=== PATIENT | female | born 1950 | race Caucasian/White ===

== ENCOUNTER 2019-07-04 11:56 | Emergency (ER) | payer MEDICARE, OTHER ==
[~2019-07-04] VITALS: Ht 160 cm; Wt 82.0 kg
[2019-07-04 13:29] LABS: BASO # 0.1 x10^3/uL (0.0-0.2); BASO % 1 % (0-3); EOS % 0 % (0-3); HEMATOCRIT 36.3 % (36.0-47.0); HEMOGLOBIN 11.3 g/dL (12.0-15.5); LYMPH # 1.5 x10^3/uL (1.0-4.8); LYMPH % 10 % (24-48); MEAN CORPUSCULAR HEMOGLOBIN 24 pg (25-35); MEAN CORPUSCULAR HGB CONC 31 g/dL (31-37); MEAN CORPUSCULAR VOLUME 76 fL (79-100); MONO # 1.1 x10^3/uL (0.0-1.1); MONO % 8 % (0-9); NEUT # 11.8 x10^3uL (1.8-7.7); NEUT % 81 % (31-73); PLATELET COUNT 306 x10^3/uL (140-400); RED CELL DISTRIBUTION WIDTH 16.8 % (11.5-14.5); WHITE BLOOD COUNT 14.6 x10^3/uL (4.0-11.0)
[2019-07-04] MEDS: ONDANSETRON PF 4 MG/2 ML VIAL. IVP ONE ×2 (13:30→16:35)
[2019-07-04] MEDS: IV NORMAL SALINE 1,000ML 1,000 ML IV ONE (13:31)
[2019-07-04 13:35] LABS: CALCIUM 8.9 mg/dL (8.5-10.1); CREATININE 1.7 mg/dL (0.6-1.0); GFR 29.8; POTASSIUM 4.1 mmol/L (3.5-5.1)
[2019-07-04 13:41] LABS: ALBUMIN 3.1 g/dL (3.4-5.0); ALBUMIN/GLOBULIN RATIO 0.8 (1.0-1.7); MAGNESIUM 2.1 mg/dL (1.8-2.4); TOTAL BILIRUBIN 0.3 mg/dL (0.2-1.0); TOTAL PROTEIN 6.9 g/dL (6.4-8.2)
--- NOTE | 2019-07-04 14:11 | RAD ---
CT HEAD WO CONTRAST Clinical indications: Headache for 2 weeks. COMPARISON: September 18, 2014. Technique: Noncontrast axial cross sectional scanning of the head was performed. PQRS compliance Statement One or more of the following individualized dose reduction techniques were utilized for this study: 1. Automated exposure control 2. Adjustment of the mA and/or kV according to patient size 3. Use of iterative reconstruction technique Findings: No acute intracranial hemorrhage or midline shift or mass-effect or hydrocephalus or extra-axial fluid collection is seen. There is a moderate-sized area of encephalomalacia of the right cerebellum. There is a large area of encephalomalacia of the left parietal lobe including jin matter and periventricular white matter which extends anteriorly and posteriorly. There is a moderate-sized wedge-shaped area of encephalomalacia involving the lateral aspect of the left occipital lobe. Findings are consistent with old infarcts. In addition, there is a black central hypodensity of the gabe. This may be due to artifact or could be due to old small vessel ischemia. All of these findings are new since the previous study however. No skull fracture or pneumocephalus is seen. No opacification of the mastoid sinuses or the middle ear cavities or the paranasal sinuses is seen. The maxillary sinuses are not completely seen in this study. IMPRESSION: No acute intracranial hemorrhage is seen. 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 Electronically signed by: Haeth Zacarias MD (07/04/2019 2:08 PM) [facility] – [place]
--- NOTE | 2019-07-04 15:38 | RAD ---
CT scan of the abdomen and pelvis without contrast 07/04/2019 CLINICAL HISTORY: Abdominal pain. Difficulty urinating. TECHNIQUE: Unenhanced contiguous, 3 mm axial sections were obtained through the abdomen and pelvis. One or more of the following individualized dose reduction techniques were utilized for this study: 1. Automated exposure control. 2. Adjustment of the mA and/or kV according to patient size. 3. Use of iterative reconstruction technique. FINDINGS: Images through the lung bases demonstrate minimal dependent subsegmental atelectasis bilaterally. The liver, spleen, and pancreas are within normal limits. Fat-containing mass lesions are seen involving both adrenal glands, left greater than right which measure 2 to 3 cm in size. They are consistent with adrenal myelolipomas. Multiple nonobstructing calculi are seen involving both kidneys. These measure 1 mm to 1.8 cm in size. Rounded low-attenuation lesions are seen involving both kidneys consistent most likely with cysts. These measure 3 mm to 3.6 cm in size. No further imaging workup is recommended. Moderate dilatation of the right intrarenal collecting system is seen. The right ureter is dilated in its proximal and midportion. A 1 cm distal right ureteral calculus is seen in the distal right ureter which is causing moderate obstruction of the right collecting system. This is approximately 5 to 6 cm superior to the expected location of the right UVJ. There is no evidence of obstruction of the left collecting system. Atherosclerotic calcification of the abdominal aorta and its branches is noted. Air and stool are seen throughout the colon. There is no evidence of bowel obstruction. Diverticula are seen involving the descending and sigmoid colon. Images through the pelvis demonstrate the urinary bladder to be slightly contracted. Calcifications are seen within the pelvis consistent with phleboliths. No free fluid is seen. The patient appears to be post hysterectomy. No adnexal mass is noted. Very mild S-shaped curvature of the thoracolumbar spine is seen. Degenerative changes are seen involving the lower thoracic and mid and lower lumbar spine along with both hips. IMPRESSION: 1 cm distal right ureteral calculus is seen which is causing moderate obstruction of the right collecting system. Electronically signed by: Ottoniel Spring MD (07/04/2019 3:35 PM) [id number]
[2019-07-04] MEDS ORDERED: PIPERACILLIN/TAZOBACTAM 3.375 GM VIAL IV ONE (15:49)
[2019-07-04] MEDS ORDERED: IV NORMAL SALINE 50ML 50 ML ONE (15:49)
--- NOTE | 2019-07-04 15:56 | PHYS DOC ---
Past History Past Medical History: A-Fib, CHF, CVA, DVT, Hypertension, Kidney Stones Past Surgical History: Cholecystectomy, Hysterectomy, Tonsillectomy Alcohol Use: None Adult General Chief Complaint Chief Complaint: HEADACHE HPI HPI Patient is a 69-year-old female who presented to ER today for evaluation of 2- day history of abdominal pain, nausea and vomiting, not able to urinate. Patient has history of kidney stone in the past. Patient denies any fever. She was not able to keep anything down for the last 2-day. Patient also had a history of CVA in the past, affecting the right side. Patient has been experiencing migraine headache ever since. For the last 2-week patient has been having her typical migraine headache. Patient denies any fever, no head injury. Patient denies any chest pain, no trouble breathing. Review of Systems Review of Systems Constitutional: Denies fever or chills [] Eyes: Denies change in visual acuity, redness, or eye pain [] HENT: Denies nasal congestion or sore throat [] Respiratory: Denies cough or shortness of breath [] Cardiovascular: No additional information not addressed in HPI [] GI: Positive abdominal pain, nausea, vomiting, NO bloody stools or diarrhea [] : Denies dysuria or hematuria [] Musculoskeletal: Denies back pain or joint pain [] Integument: Denies rash or skin lesions [] Neurologic: POSITIVE FOR headache,NO focal weakness or sensory changes [] Endocrine: Denies polyuria or polydipsia [] All other systems were reviewed and found to be within normal limits, except as documented in this note. Current Medications Current Medications Current Medications Medications (Trade) Dose Ordered Sig/Luiza Start Time Stop Time Status Last Admin Dose Admin Ondansetron HCl (Zofran) 4 mg 1X ONCE 07/04/19 13:00 07/04/19 13:20 DC 07/04/19 13:30 4 MG Piperacillin Sod/ Tazobactam Sod (Zosyn) 3.375 gm STK-MED ONCE 07/04/19 15:49 07/04/19 15:49 DC Piperacillin Sod/ Tazobactam Sod 3.375 gm/Sodium Chloride 50 ml @ 100 mls/hr 1X ONCE 07/04/19 15:15 07/04/19 15:44 DC Sodium Chloride 50 ml @ As Directed STK-MED ONCE 07/04/19 15:49 07/04/19 15:49 DC Allergies Allergies Allergies Coded Allergies Type Severity Reaction Last Updated Verified Sulfa (Sulfonamide Antibiotics) Allergy Unknown 07/04/19 Yes levofloxacin Allergy Unknown 07/04/19 Yes morphine Allergy Unknown 07/04/19 Yes Physical Exam Physical Exam Constitutional: Well developed, well nourished, no acute distress, non-toxic appearance. [] HENT: Normocephalic, atraumatic, bilateral external ears normal, oropharynx moist, no oral exudates, nose normal. [] Eyes: PERRLA, EOMI, conjunctiva normal, no discharge. [] Neck: Normal range of motion, no tenderness, supple, no stridor. [] Cardiovascular:Heart rate regular rhythm, no murmur [] Lungs & Thorax: Bilateral breath sounds clear to auscultation [] Abdomen: Bowel sounds normal, soft, There is tenderness to palpation at RLQ and suprapubic area, no masses, no pulsatile masses. [] Skin: Warm, dry, no erythema, no rash. [] Back: No tenderness, no CVA tenderness. [] Extremities: No tenderness, no cyanosis, no clubbing, ROM intact, no edema. [] Neurologic: Alert and oriented X 3, right upper extremity weakness due to previous stroke. Psychologic: Affect normal, judgement normal, mood normal. [] Current Patient Data Vital Signs Vital Signs Date Time Temp Pulse Resp B/P (MAP) Pulse Ox O2 Delivery O2 Flow Rate FiO2 07/04/19 12:24 97.5 101 20 159/94 (115) 92 Room Air Lab Results Laboratory Tests Test 07/04/19 13:10 White Blood Count 14.6 x10^3/uL (4.0-11.0) H Red Blood Count 4.80 x10^6/uL (3.50-5.40) Hemoglobin 11.3 g/dL (12.0-15.5) L Hematocrit 36.3 % (36.0-47.0) Mean Corpuscular Volume 76 fL (79-100) L Mean Corpuscular Hemoglobin 24 pg (25-35) L Mean Corpuscular Hemoglobin Concent 31 g/dL (31-37) Red Cell Distribution Width 16.8 % (11.5-14.5) H Platelet Count 306 x10^3/uL (140-400) Neutrophils (%) (Auto) 81 % (31-73) H Lymphocytes (%) (Auto) 10 % (24-48) L Monocytes (%) (Auto) 8 % (0-9) Eosinophils (%) (Auto) 0 % (0-3) Basophils (%) (Auto) 1 % (0-3) Neutrophils # (Auto) 11.8 x10^3uL (1.8-7.7) H Lymphocytes # (Auto) 1.5 x10^3/uL (1.0-4.8) Monocytes # (Auto) 1.1 x10^3/uL (0.0-1.1) Eosinophils # (Auto) 0.0 x10^3/uL (0.0-0.7) Basophils # (Auto) 0.1 x10^3/uL (0.0-0.2) Sodium Level 141 mmol/L (136-145) Potassium Level 4.1 mmol/L (3.5-5.1) Chloride Level 105 mmol/L (98-107) Carbon Dioxide Level 24 mmol/L (21-32) Anion Gap 12 (6-14) Blood Urea Nitrogen 29 mg/dL (7-20) H Creatinine 1.7 mg/dL (0.6-1.0) H Estimated GFR (Cockcroft-Gault) 29.8 BUN/Creatinine Ratio 17 (6-20) Glucose Level 114 mg/dL (70-99) H Calcium Level 8.9 mg/dL (8.5-10.1) Magnesium Level 2.1 mg/dL (1.8-2.4) Total Bilirubin 0.3 mg/dL (0.2-1.0) Aspartate Amino Transferase (AST) 17 U/L (15-37) Alanine Aminotransferase (ALT) 13 U/L (14-59) L Alkaline Phosphatase 105 U/L (46-116) Total Protein 6.9 g/dL (6.4-8.2) Albumin 3.1 g/dL (3.4-5.0) L Albumin/Globulin Ratio 0.8 (1.0-1.7) L Lipase 104 U/L (73-393) EKG EKG [] Radiology/Procedures Radiology/Procedures [][address] [id number] IMAGING REPORT Signed PATIENT: SHERRI BERGER ACCOUNT: [id number] : 1950 LOCATION: ER AGE: 69 SEX: F EXAM STATUS: REG ER ORD. PHYSICIAN: SUPRIYA SALGADO DO REASON: ABDOMINAL PAIN, NOT ABLE TO URINATE PROCEDURE: CT ABDOMEN PELVIS WO CONTRAST CT scan of the abdomen and pelvis without contrast 07/04/2019 CLINICAL HISTORY: Abdominal pain. Difficulty urinating. TECHNIQUE: Unenhanced contiguous, 3 mm axial sections were obtained through the abdomen and pelvis. One or more of the following individualized dose reduction techniques were utilized for this study: 1. Automated exposure control. 2. Adjustment of the mA and/or kV according to patient size. 3. Use of iterative reconstruction technique. FINDINGS: Images through the lung bases demonstrate minimal dependent subsegmental atelectasis bilaterally. The liver, spleen, and pancreas are within normal limits. Fat-containing mass lesions are seen involving both adrenal glands, left greater than right which measure 2 to 3 cm in size. They are consistent with adrenal myelolipomas. Multiple nonobstructing calculi are seen involving both kidneys. These measure 1 mm to 1.8 cm in size. Rounded low-attenuation lesions are seen involving both kidneys consistent most likely with cysts. These measure 3 mm to 3.6 cm in size. No further imaging workup is recommended. Moderate dilatation of the right intrarenal collecting system is seen. The right ureter is dilated in its proximal and midportion. A 1 cm distal right ureteral calculus is seen in the distal right ureter which is causing moderate obstruction of the right collecting system. This is approximately 5 to 6 cm superior to the expected location of the right UVJ. There is no evidence of obstruction of the left collecting system. Atherosclerotic calcification of the abdominal aorta and its branches is noted. Air and stool are seen throughout the colon. There is no evidence of bowel obstruction. Diverticula are seen involving the descending and sigmoid colon. Images through the pelvis demonstrate the urinary bladder to be slightly contracted. Calcifications are seen within the pelvis consistent with phleboliths. No free fluid is seen. The patient appears to be post hysterectomy. No adnexal mass is noted. Very mild S-shaped curvature of the thoracolumbar spine is seen. Degenerative changes are seen involving the lower thoracic and mid and lower lumbar spine along with both hips. IMPRESSION: 1 cm distal right ureteral calculus is seen which is causing moderate obstruction of the right collecting system. Electronically signed by: Ottoniel Spring MD (07/04/2019 3:35 PM) [id number] DICTATED AND SIGNED BY: OTTONIEL SPRING MD DATE: 07/04/19 1535 CC: SUPRIYA SALGADO DO; ALIVIA BOOKER MD ~ [address] [id number] IMAGING REPORT Signed PATIENT: SHERRI BERGER ACCOUNT: [id number] : 1950 LOCATION: ER AGE: 69 SEX: F EXAM STATUS: REG ER ORD. PHYSICIAN: SUPRIYA SALGADO DO REASON: headache for two weeks PROCEDURE: CT HEAD WO CONTRAST CT HEAD WO CONTRAST Clinical indications: Headache for 2 weeks. COMPARISON: September 18, 2014. Technique: Noncontrast axial cross sectional scanning of the head was performed. PQRS compliance Statement One or more of the following individualized dose reduction techniques were utilized for this study: 1. Automated exposure control 2. Adjustment of the mA and/or kV according to patient size 3. Use of iterative reconstruction technique Findings: No acute intracranial hemorrhage or midline shift or mass-effect or hydrocephalus or extra-axial fluid collection is seen. There is a moderate-sized area of encephalomalacia of the right cerebellum. There is a large area of encephalomalacia of the left parietal lobe including jin matter and periventricular white matter which extends anteriorly and posteriorly. There is a moderate-sized wedge-shaped area of encephalomalacia involving the lateral aspect of the left occipital lobe. Findings are consistent with old infarcts. In addition, there is a black central hypodensity of the gabe. This may be due to artifact or could be due to old small vessel ischemia. All of these findings are new since the previous study however. No skull fracture or pneumocephalus is seen. No opacification of the mastoid sinuses or the middle ear cavities or the paranasal sinuses is seen. The maxillary sinuses are not completely seen in this study. IMPRESSION: No acute intracranial hemorrhage is seen. 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 Electronically signed by: Heath Zacarias MD (07/04/2019 2:08 PM) [facility] [place] DICTATED AND SIGNED BY: HEATH ZACARIAS MD DATE: 07/04/19 1408 CC: SUPRIYA SALGADO DO; ALIVIA BOOKER MD ~ Course & Med Decision Making Course & Med Decision Making Pertinent Labs and Imaging studies reviewed. (See chart for details) Patient is a 69-year-old female who was evaluated in the ER today due to headache and abdominal pain, associated with nausea and vomiting. Work-up in the ER includes CT scan of her head and lab work, CT scan of her abdomen pelvic show she had obstructive right-sided ureteral stone, there is no urology service at this hospital, patient need to be admitted to the hospital therefore we need to transfer her to another hospital for urology care. Patient request to go to [facility]. Dr. Seven Richard, hospitalist at [facility] accepted patient for transfer there. Dragon Disclaimer Dragon Disclaimer This electronic medical record was generated, in whole or in part, using a voice recognition dictation system. Departure Departure: Impression: Primary Impression: Hydronephrosis with renal calculous obstruction Disposition: XFER [facility] HOSP (transferred to [facility], ACCEPTED BY DR. SEVEN MANN) Condition: STABLE Referrals: ALIVIA BOOKER MD (PCP) SUPRIYA SALGADO DO Jul 04, 2019 15:56
[2019-07-04] MEDS: PIPERACILLIN/TAZOBACTAM 3.375 GM in IV NORMAL SALINE 50ML 50 ML IV ONE (16:00)
[2019-07-04 16:01] LABS: BACTERIA,URINE 0 /HPF (0-FEW); BILIRUBIN,URINE NEG (NEG); CLARITY,URINE HAZY; COLOR,URINE YELLOW; GLUCOSE,URINE NEG (NEG); NITRITE,URINE NEG (NEG); RBC,URINE OCC /HPF (0-2); SQUAMOUS EPITHELIAL CELL,UR OCC /LPF; UROBILINOGEN,URINE 0.2 mg/dL (0.2 mg/dL)
[2019-07-04 17:31] VITALS: BP 144/79
== END 2019-07-04 17:45 | disposition short-term general hospital (02) ==
LOC: ER 11:56
DX: N13.2 Hydronephrosis with renal and ureteral calculous obstruction (principal); R11.2 Nausea with vomiting, unspecified; G43.909 Migraine, unspecified, not intractable, without status migrainosus; I48.91 Unspecified atrial fibrillation; I11.0 Hypertensive heart disease with heart failure; I50.9 Heart failure, unspecified; Z86.73 Personal history of transient ischemic attack (TIA), and cerebral infarction without residual deficits; Z86.718 Personal history of other venous thrombosis and embolism; Z87.442 Personal history of urinary calculi; Z90.49 Acquired absence of other specified parts of digestive tract; Z90.710 Acquired absence of both cervix and uterus; Z88.2 Allergy status to sulfonamides; Z88.1 Allergy status to other antibiotic agents; Z88.5 Allergy status to narcotic agent
CPT/HCPCS: 36415; 70450; 74176; 80053; 81001; 83690; 83735; 85025; 96361; 96365; 96375; 96376; 99285; J2405; J2543; J3010; J7030

== ENCOUNTER 2019-09-25 18:38 | Emergency (ER) | payer OTHER ==
[~2019-09-25] VITALS: Ht 312.4 cm; Wt 82.0 kg
[2019-09-25] MEDS ORDERED: ONDANSETRON PF 4 MG/2 ML VIAL. IVP ONE (19:00)
[2019-09-25 19:20] LABS: BASO % 1 % (0-3); EOS # 0.2 x10^3/uL (0.0-0.7); EOS % 2 % (0-3); HEMATOCRIT 24.5 % (36.0-47.0); HEMOGLOBIN 7.4 g/dL (12.0-15.5); LYMPH # 1.8 x10^3/uL (1.0-4.8); LYMPH % 27 % (24-48); MEAN CORPUSCULAR HEMOGLOBIN 21 pg (25-35); MEAN CORPUSCULAR HGB CONC 30 g/dL (31-37); MEAN CORPUSCULAR VOLUME 70 fL (79-100); MONO # 0.6 x10^3/uL (0.0-1.1); MONO % 9 % (0-9); NEUT # 4.2 x10^3uL (1.8-7.7); NEUT % 62 % (31-73); PLATELET COUNT 281 x10^3/uL (140-400); RED CELL DISTRIBUTION WIDTH 17.7 % (11.5-14.5); WHITE BLOOD COUNT 6.8 x10^3/uL (4.0-11.0)
[2019-09-25 19:30] LABS: CALCIUM 8.7 mg/dL (8.5-10.1); CREATININE 1.1 mg/dL (0.6-1.0); GFR 49.2
[2019-09-25 19:36] LABS: DIRECT BILIRUBIN 0.1 mg/dL (0.0-0.2); TOTAL BILIRUBIN 0.1 mg/dL (0.2-1.0); TOTAL PROTEIN 6.7 g/dL (6.4-8.2)
[2019-09-25 19:54] LABS: ANISOCYTOSIS SLIGHT; PLT ESTIMATE ADEQUATE (ADEQUATE)
--- NOTE | 2019-09-25 19:54 | RAD ---
VENOUS LOWER EXTREMITY RIGHT 09/25/2019 6:56 PM Clinical Information: Right lower extremity pain. Comparison: None. Technique: Multiple grayscale, color Doppler, and spectral Doppler sonographic images of the lower extremity venous structures were obtained. Findings: The right common femoral, femoral, and popliteal veins exhibit normal compression, respiratory phasicity, and augmentation. No intraluminal thrombi are identified. Color Doppler flow is demonstrated in the right posterior tibial veins. There is a simple fluid collection within the medial popliteal fossa measuring 3.4 x 2.4 x 0.6 cm. Greater saphenous veins are patent at the saphenofemoral junction. Impression: 1. No evidence of deep venous thrombosis. 2. Simple fluid collection in the medial popliteal fossa measures 3.4 x 2.4 x 0.6 cm, possibly a popliteal cyst. Electronically signed by: Aicha Akins MD (09/25/2019 7:51 PM) [facility]
--- NOTE | 2019-09-25 20:08 | PHYS DOC ---
Past History Past Medical History: A-Fib, CHF, CVA, DVT, Hypertension, Kidney Stones Past Surgical History: Cholecystectomy, Hysterectomy, Tonsillectomy Alcohol Use: None General Adult EDM: Chief Complaint: LOWER EXT PAIN HPI: HPI: Patient is a 69-year-old female who presents with complaint of right leg pain. 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 Pain has just gotten a whole lot worse over the last couple of days. Patient has been taking hydrocodone for the pain without relief. Patient denies any chest pain or shortness of breath. She rates the pain in her leg at an 8 out of 10. Patient also has noted increase in swelling to the leg. [] Review of Systems: Review of Systems: Constitutional: Denies fever or chills Respiratory: Denies cough or shortness of breath Cardiovascular: Denies chest pain or edema Musculoskeletal: Complains of right leg pain Integument: Denies rash Neurologic: Denies headache, focal weakness or sensory changes A full 10 point review of systems has been reviewed and is otherwise negative. Heart Score: Risk Factors: Risk Factors: DM, Current or recent (<one month) smoker, HTN, HLP, family history of CAD, obesity. Risk Scores: Score 0 - 3: 2.5% MACE over next 6 weeks - Discharge Home Score 4 - 6: 20.3% MACE over next 6 weeks - Admit for Clinical Observation Score 7 - 10: 72.7% MACE over next 6 weeks - Early Invasive Strategies Current Medications: Current Meds: Current Medications Medications (Trade) Dose Ordered Sig/[facility] Start Time Stop Time Status Last Admin Dose Admin Fentanyl Citrate (Fentanyl 2ml Vial) 50 mcg 1X ONCE 09/25/19 19:00 09/25/19 19:22 DC 09/25/19 19:00 50 MCG Ondansetron HCl (Zofran) 4 mg 1X ONCE 09/25/19 19:00 09/25/19 19:01 DC 09/25/19 19:00 4 MG Allergies: Allergies: Allergies Coded Allergies Type Severity Reaction Last Updated Verified Sulfa (Sulfonamide Antibiotics) Allergy Unknown 07/04/19 Yes levofloxacin Allergy Unknown 07/04/19 Yes morphine Allergy Unknown 07/04/19 Yes Physical Exam: PE: Constitutional: Well developed, well nourished, no acute distress, non-toxic appearance. [] HENT: Normocephalic, atraumatic, bilateral external ears normal, oropharynx moist, no oral exudates, nose normal. [] Eyes: PERRLA, EOMI, conjunctiva normal, no discharge. [] Neck: Normal range of motion, no tenderness, supple, no stridor. [] Cardiovascular: Regular rate and rhythm [] Lungs & Thorax: Bilateral breath sounds clear to auscultation [] Abdomen: Bowel sounds normal, soft, no tenderness. [] Skin: Warm, dry, no erythema, no rash. [] Extremities: No tenderness, no cyanosis, no clubbing, ROM intact, with right lower leg edema. [] Neurologic: Awake and alert with no acute focal deficits noted. [] Current Patient Data: Labs: Laboratory Tests Test 09/25/19 19:07 White Blood Count 6.8 x10^3/uL (4.0-11.0) Red Blood Count 3.50 x10^6/uL (3.50-5.40) Hemoglobin 7.4 g/dL (12.0-15.5) L Hematocrit 24.5 % (36.0-47.0) L Mean Corpuscular Volume 70 fL (79-100) L Mean Corpuscular Hemoglobin 21 pg (25-35) L Mean Corpuscular Hemoglobin Concent 30 g/dL (31-37) L Red Cell Distribution Width 17.7 % (11.5-14.5) H Platelet Count 281 x10^3/uL (140-400) Neutrophils (%) (Auto) 62 % (31-73) Lymphocytes (%) (Auto) 27 % (24-48) Monocytes (%) (Auto) 9 % (0-9) Eosinophils (%) (Auto) 2 % (0-3) Basophils (%) (Auto) 1 % (0-3) Neutrophils # (Auto) 4.2 x10^3uL (1.8-7.7) Lymphocytes # (Auto) 1.8 x10^3/uL (1.0-4.8) Monocytes # (Auto) 0.6 x10^3/uL (0.0-1.1) Eosinophils # (Auto) 0.2 x10^3/uL (0.0-0.7) Basophils # (Auto) 0.0 x10^3/uL (0.0-0.2) Platelet Estimate Adequate (ADEQUATE) Anisocytosis Slight D-Dimer (Joselin) 1.16 mg/L (0.00-0.50) H Sodium Level 144 mmol/L (136-145) Potassium Level 4.0 mmol/L (3.5-5.1) Chloride Level 109 mmol/L (98-107) H Carbon Dioxide Level 26 mmol/L (21-32) Anion Gap 9 (6-14) Blood Urea Nitrogen 24 mg/dL (7-20) H Creatinine 1.1 mg/dL (0.6-1.0) H Estimated GFR (Cockcroft-Gault) 49.2 Glucose Level 98 mg/dL (70-99) Calcium Level 8.7 mg/dL (8.5-10.1) Total Bilirubin 0.1 mg/dL (0.2-1.0) L Direct Bilirubin 0.1 mg/dL (0.0-0.2) Aspartate Amino Transferase (AST) 14 U/L (15-37) L Alanine Aminotransferase (ALT) 15 U/L (14-59) Alkaline Phosphatase 118 U/L (46-116) H Total Protein 6.7 g/dL (6.4-8.2) Albumin 3.0 g/dL (3.4-5.0) L Vital Signs: Vital Signs Date Time Temp Pulse Resp B/P (MAP) Pulse Ox O2 Delivery O2 Flow Rate FiO2 09/25/19 19:00 16 98 Room Air 09/25/19 18:53 98.2 90 161/88 (112) EKG: EKG: [] Radiology/Procedures: Radiology/Procedures: [] Impressions: PROCEDURE: VENOUS LOWER EXTREMITY RIGHT VENOUS LOWER EXTREMITY RIGHT 09/25/2019 6:56 PM Clinical Information: Right lower extremity pain. Comparison: None. Technique: Multiple grayscale, color Doppler, and spectral Doppler sonographic images of the lower extremity venous structures were obtained. Findings: The right common femoral, femoral, and popliteal veins exhibit normal compression, respiratory phasicity, and augmentation. No intraluminal thrombi are identified. Color Doppler flow is demonstrated in the right posterior tibial veins. There is a simple fluid collection within the medial popliteal fossa measuring 3.4 x 2.4 x 0.6 cm. Greater saphenous veins are patent at the saphenofemoral junction. Impression: 1. No evidence of deep venous thrombosis. 2. Simple fluid collection in the medial popliteal fossa measures 3.4 x 2.4 x 0.6 cm, possibly a popliteal cyst. Electronically signed by: Jarred Martins MD (09/25/2019 7:51 PM) [facility] DICTATED AND SIGNED BY: JARRED MARTINS MD DATE: 09/25/191950 CC: JOLENE HUERTA Jr., DO; ALIVIA BOOKER MD ~ Course & Med Decision Making: Course & Med Decision Making Pertinent Labs and Imaging studies reviewed. (See chart for details) [] Dragon Disclaimer: Dragon Disclaimer: This electronic medical record was generated, in whole or in part, using a voice recognition dictation system. Departure Departure: Impression: Primary Impression: Acute anemia Additional Impression: Neuropathy of right lower extremity Disposition: [facility] Admitting Physician: Jody Dill Condition: GOOD Referrals: ALIVIA BOOKER MD (PCP) JOLENE HUERTA Jr., DO September 25, 2019 20:08
[2019-09-25 20:33] VITALS: BP 143/83
== END 2019-09-25 21:26 | disposition short-term general hospital (02) ==
LOC: ER 18:38
DX: G57.91 Unspecified mononeuropathy of right lower limb (principal); D64.89 Other specified anemias; I48.91 Unspecified atrial fibrillation; I11.0 Hypertensive heart disease with heart failure; I50.9 Heart failure, unspecified; Z87.442 Personal history of urinary calculi; Z86.718 Personal history of other venous thrombosis and embolism; Z88.2 Allergy status to sulfonamides; Z88.1 Allergy status to other antibiotic agents; Z88.5 Allergy status to narcotic agent
CPT/HCPCS: 36415; 80048; 80076; 85025; 85379; 93971; 96374; 96375; 99285; J2405; J3010; 99284-25

== ENCOUNTER → 2019-11-15 | Outpatient (CLI) | payer OTHER ==
[2019-11-15 13:16] LABS: BASO # 0.1 x10^3/uL (0.0-0.2); BASO % 1 % (0-3); EOS # 0.2 x10^3/uL (0.0-0.7); EOS % 2 % (0-3); HEMATOCRIT 39.5 % (36.0-47.0); HEMOGLOBIN 12.5 g/dL (12.0-15.5); LYMPH # 1.5 x10^3/uL (1.0-4.8); LYMPH % 20 % (24-48); MEAN CORPUSCULAR HEMOGLOBIN 25 pg (25-35); MEAN CORPUSCULAR HGB CONC 32 g/dL (31-37); MEAN CORPUSCULAR VOLUME 80 fL (79-100); MONO # 0.5 x10^3/uL (0.0-1.1); MONO % 7 % (0-9); NEUT % 70 % (31-73); PLATELET COUNT 214 x10^3/uL (140-400); RED BLOOD COUNT 4.96 x10^6/uL (3.50-5.40); RED CELL DISTRIBUTION WIDTH 22.5 % (11.5-14.5); WHITE BLOOD COUNT 7.2 x10^3/uL (4.0-11.0)
[2019-11-15 14:03] LABS: PLT ESTIMATE ADEQUATE (ADEQUATE)
[2019-11-15 14:04] LABS: ANISOCYTOSIS SLIGHT; OVALOCYTES OCC; POLYCHROMASIA SLIGHT; TEAR DROP CELLS OCC
== END | disposition home or self-care (01) ==
LOC: LAB 12:41
PROVIDERS: ATTEND Family Medicine
DX: D64.9 Anemia, unspecified (principal)
CPT/HCPCS: 36415; 85025

== ENCOUNTER → 2019-11-22 | Outpatient (CLI) | payer OTHER ==
--- NOTE | 2019-11-22 13:14 | RAD ---
EXAM: 1. LUMBAR SPINE MINIMUM 4 VIEWS. 2. RIGHT KNEE 2 VIEWS. 3. RIGHT TIBIA/FIBULA 2 VIEWS. HISTORY: Low back and right leg pain. COMPARISON: None. FINDINGS: There is a mild lumbar levoscoliosis. There is grade 1 anterolisthesis at L4-5 from facet osteoarthritis. Vertebral body heights are maintained, and no fractures are identified. Degenerative disc disease is mild at L4-5. Osteopenia is at least moderate. Atherosclerotic calcifications are noted. Stool throughout the colon is consistent with constipation. The medial compartmental joint space at the right knee is effaced with moderate osteophytosis. Chondrocalcinosis of the menisci is noted. Alignment is maintained. There is no joint effusion. No fractures are appreciated more distally in the tibia/fibula. The joint bases and alignment of the mortise are maintained. IMPRESSION: 1. Grade 1 anterolisthesis at L4-5 and mild degenerative disc disease. 2. Moderate to severe medial compartmental osteoarthritis of the right knee. 3. Chondrocalcinosis of the menisci is usually a senescent finding. Correlate clinically to exclude deposition diseases such as CPPD. Electronically signed by: Dk Walters MD (11/22/2019 1:11 PM) [id number]
== END ==
LOC: PMG 11:21
PROVIDERS: ATTEND Physician Assistant
DX: M17.11 Unilateral primary osteoarthritis, right knee (principal); M51.36 Other intervertebral disc degeneration, lumbar region; M11.261 Other chondrocalcinosis, right knee
CPT/HCPCS: 72110; 73560; 73590

== ENCOUNTER 2020-02-03 23:12 | Emergency (ER) | payer OTHER ==
[~2020-02-03] VITALS: Ht 160 cm; Wt 96.2 kg
--- NOTE | 2020-02-03 23:48 | PHYS DOC ---
Past History Past Medical History: A-Fib, CHF, CVA, DVT, Hypertension, Kidney Stones, Stroke Past Surgical History: Cholecystectomy, Hysterectomy, Tonsillectomy Alcohol Use: None General Adult EDM: Chief Complaint: FACE PROBLEM HPI: HPI: 69-year-old female presents with bilateral jaw and anterior neck pain. The symptoms started last night as the patient was getting ready for bed. It got worse today and this evening she decided come the emergency room. She is accompanied by her daughter. Patient is most concerned because she has had 3 strokes that affected the right side of her body. She has not noticed change in voice weakness beyond baseline. She has tenderness at the bilateral TMJ. She also has tenderness of the anterior cervical lymph node region bilaterally. She admits to a sore throat. She denies fever or chills. Review of Systems: Review of Systems: Constitutional: Denies fever or chills Eyes: Denies change in visual acuity HENT: facial pain Respiratory: Denies cough or shortness of breath Cardiovascular: Denies chest pain or edema GI: Denies abdominal pain, nausea, vomiting, bloody stools or diarrhea : Denies dysuria Musculoskeletal: Denies back pain or joint pain Integument: Denies rash Neurologic: Denies headache, focal weakness or sensory changes Endocrine: Denies polyuria or polydipsia Lymphatic: Denies swollen glands Psychiatric: Denies depression or anxiety Heart Score: Risk Factors: Risk Factors: DM, Current or recent (<one month) smoker, HTN, HLP, family history of CAD, obesity. Risk Scores: Score 0 - 3: 2.5% MACE over next 6 weeks - Discharge Home Score 4 - 6: 20.3% MACE over next 6 weeks - Admit for Clinical Observation Score 7 - 10: 72.7% MACE over next 6 weeks - Early Invasive Strategies Allergies: Allergies: Allergies Coded Allergies Type Severity Reaction Last Updated Verified Sulfa (Sulfonamide Antibiotics) Allergy Unknown 07/04/19 Yes levofloxacin Allergy Unknown 07/04/19 Yes morphine Allergy Unknown 07/04/19 Yes Physical Exam: PE: Constitutional: Well developed, well nourished, no acute distress, non-toxic appearance. [] HENT: Normocephalic, atraumatic, bilateral external ears normal, bilateral tympanic membranes obscured with cerumen. Pain over the bilateral TMJ. Mild swelling of the right posterior palate. [] Eyes: PERRLA, EOMI, conjunctiva normal, no discharge. [] Neck: Normal range of motion, tenderness of the bilateral cervical anterior lymph nodes. [] Cardiovascular: Heart rate regular rhythm, no murmur [] Lungs & Thorax: Bilateral breath sounds clear to auscultation [] Abdomen: Bowel sounds normal, soft, no tenderness, no masses, no pulsatile masses. [] Skin: Warm, dry, no erythema, no rash. [] Back: No tenderness, no CVA tenderness. [] Extremities: No tenderness, no cyanosis, no clubbing, ROM intact, no edema. [] Neurologic: Alert and oriented X 3, normal motor function, normal sensory function, no focal deficits noted. [] Psychologic: Affect normal, judgement normal, mood normal. [] Current Patient Data: Vital Signs: Vital Signs Date Time Temp Pulse Resp B/P (MAP) Pulse Ox O2 Delivery O2 Flow Rate FiO2 02/03/20 23:29 98.4 88 20 186/81 (116) 95 Room Air EKG: EKG: [] Radiology/Procedures: Radiology/Procedures: [] Impressions: T head without contrast. CT neck without contrast. HISTORY: Jaw pain, weakness, history of prior stroke. Right palate swelling and neck pain. CT head findings: Comparison is made to CT head July 04, 2019. Encephalomalacia due to chronic ischemic infarcts involving the right occipital lobe and there is extensive encephalomalacia due to left MCA territory infarct of the left frontal and parietal lobes, stable. No intracranial hemorrhage, mass or hydrocephalus. Orbits, mastoids and bones are unremarkable. IMPRESSION: No acute abnormality. Chronic infarcts as described above. Stable exam. CT neck findings: Cervical disc disease with disc osteophytes and uncovertebral spurring may contribute to mild spinal canal and neural foraminal stenoses. Numerous sialoliths bilateral parotid glands. Thyromegaly with numerous thyroid nodules some of which are calcified of the left lobe. The submandibular space, sublingual space, oral cavity, nasopharynx, pediatrician active practice spaces, parapharyngeal spaces, larynx and pharynx are unremarkable. Retropharyngeal carotid arteries. No mass or adenopathy. IMPRESSION: 1. No acute process. 2. Numerous bilateral parotid gland sialoliths. No inflammatory change of the salivary glands evident. 3. Multinodular thyroid with calcifications. This could be further assessed with outpatient thyroid sonography. Exposure: One or more of the following individualized dose reduction techniques were utilized for this examination: 1. Automated exposure control 2. Adjustment of the mA and/or kV according to patient size 3. Use of iterative reconstruction technique Electronically signed by: Morena Johnson MD (02/04/2020 1:03 AM) [facility] DICTATED AND SIGNED BY: MORENA JOHNSON MD DATE: 02/04/20 010 CC: JUSTIN WILLOUGHBY DO; ESDRAS HUDSON ~ Course & Med Decision Making: Course & Med Decision Making Pertinent Labs and Imaging studies reviewed. (See chart for details) The patient's head CT is negative for acute findings. There are chronic findings. See official report for more details. The CT of the neck shows bilateral parotid glands sialoliths with no inflammatory change. There is also a multinodular thyroid with calcifications. It is possible that the pain is from the sialoliths. Her labs are unremarkable. I have advised that she follow-up with her dentist about her TMJ as well as considering ENT consult to further evaluate her parotid glands and thyroid. Given her discomfort, I will go and treat the patient with Keflex in case this is acute bacterial siaload enitis. We will give the first dose in the emergency room. She is stable for discharge at this time. Florian Disclaimer: Florian Disclaimer: This electronic medical record was generated, in whole or in part, using a voice recognition dictation system. Departure Departure: Impression: Primary Impression: Parotid sialolithiasis Additional Impression: Thyroid nodule Disposition: HOME/RESIDENCE PRIOR TO ADM Condition: STABLE Referrals: ESDRAS HUDSON (PCP) Patient Instructions: Sialadenitis, Extended Version Scripts Cephalexin (KEFLEX) 500 Mg Capsule 1 CAP PO TID for sialadenitis for 7 Days, #21 CAP 0 Refills Prov: JUSTIN WILLOUGHBY DO 02/04/20 JUSTIN WILLOUGHBY DO Feb 03, 2020 23:48
[2020-02-04 00:40] LABS: BASO # 0.1 x10^3/uL (0.0-0.2); BASO % 1 % (0-3); EOS # 0.1 x10^3/uL (0.0-0.7); EOS % 2 % (0-3); HEMATOCRIT 39.6 % (36.0-47.0); HEMOGLOBIN 12.6 g/dL (12.0-15.5); LYMPH # 1.5 x10^3/uL (1.0-4.8); LYMPH % 17 % (24-48); MEAN CORPUSCULAR HEMOGLOBIN 26 pg (25-35); MEAN CORPUSCULAR HGB CONC 32 g/dL (31-37); MEAN CORPUSCULAR VOLUME 83 fL (79-100); MONO # 0.7 x10^3/uL (0.0-1.1); MONO % 7 % (0-9); NEUT # 6.7 x10^3uL (1.8-7.7); NEUT % 73 % (31-73); PLATELET COUNT 219 x10^3/uL (140-400); RED CELL DISTRIBUTION WIDTH 16.2 % (11.5-14.5); WHITE BLOOD COUNT 9.2 x10^3/uL (4.0-11.0)
[2020-02-04 00:45] LABS: CALCIUM 9.3 mg/dL (8.5-10.1); POTASSIUM 4.1 mmol/L (3.5-5.1)
[2020-02-04 00:51] LABS: ALBUMIN 3.1 g/dL (3.4-5.0); ALBUMIN/GLOBULIN RATIO 0.8 (1.0-1.7); TOTAL BILIRUBIN 0.2 mg/dL (0.2-1.0); TOTAL PROTEIN 6.9 g/dL (6.4-8.2)
--- NOTE | 2020-02-04 01:06 | RAD ---
CT head without contrast. CT neck without contrast. HISTORY: Jaw pain, weakness, history of prior stroke. Right palate swelling and neck pain. CT head findings: Comparison is made to CT head July 04, 2019. Encephalomalacia due to chronic ischemic infarcts involving the right occipital lobe and there is extensive encephalomalacia due to left MCA territory infarct of the left frontal and parietal lobes, stable. No intracranial hemorrhage, mass or hydrocephalus. Orbits, mastoids and bones are unremarkable. IMPRESSION: No acute abnormality. Chronic infarcts as described above. Stable exam. CT neck findings: Cervical disc disease with disc osteophytes and uncovertebral spurring may contribute to mild spinal canal and neural foraminal stenoses. Numerous sialoliths bilateral parotid glands. Thyromegaly with numerous thyroid nodules some of which are calcified of the left lobe. The submandibular space, sublingual space, oral cavity, nasopharynx, forest scientist spaces, parapharyngeal spaces, larynx and pharynx are unremarkable. Retropharyngeal carotid arteries. No mass or adenopathy. IMPRESSION: 1. No acute process. 2. Numerous bilateral parotid gland sialoliths. No inflammatory change of the salivary glands evident. 3. Multinodular thyroid with calcifications. This could be further assessed with outpatient thyroid sonography. Exposure: One or more of the following individualized dose reduction techniques were utilized for this examination: 1. Automated exposure control 2. Adjustment of the mA and/or kV according to patient size 3. Use of iterative reconstruction technique Electronically signed by: Joseph Johnson MD (02/04/2020 1:03 AM) [facility]
[2020-02-04] MEDS ORDERED: CEPH-264 PO (01:19)
[2020-02-04] MEDS ORDERED: HYDR-3165 PO (01:28)
[2020-02-04] MEDS ORDERED: HYDROcodone/APAP 7.5/325MG 1 TAB TABLET ONE (01:30)
[2020-02-04] MEDS ORDERED: CEPHALEXIN 250 MG CAPSULE PO ONE (01:30)
[2020-02-04] MEDS ORDERED: HYDROcodone/APAP 7.5/325MG 1 TAB TABLET PO ONE (01:30)
[2020-02-04] MEDS ORDERED: CEPHALEXIN 250 MG CAPSULE ONE ×2 (01:30→01:42)
[2020-02-04 01:39] VITALS: BP 139/69
[2020-02-04 01:54] LABS: CLARITY,URINE HAZY; COLOR,URINE YELLOW
[2020-02-04 01:55] LABS: BACTERIA,URINE MANY /HPF (0-FEW); BILIRUBIN,URINE NEG (NEG); GLUCOSE,URINE NEG (NEG); NITRITE,URINE POS (NEG); RBC,URINE 0 /HPF (0-2); SQUAMOUS EPITHELIAL CELL,UR FEW /LPF; UROBILINOGEN,URINE 0.2 mg/dL (0.2 mg/dL)
[2020-02-07] MEDS ORDERED: CEPH-264 PO (10:32)
[2020-02-07] MEDS ORDERED: CARV12.5 PO (10:32)
[2020-02-07] MEDS ORDERED: GABA-586 PO (10:32)
[2020-02-07] MEDS ORDERED: FERR325T14 PO (10:32)
[2020-02-07] MEDS ORDERED: ASPI-630 PO (10:32)
[2020-02-07] MEDS ORDERED: LISI10TA2 PO (10:32)
[2020-02-07] MEDS ORDERED: CLOT15CR5 TP (10:32)
[2020-02-07] MEDS ORDERED: HYDR-2155 PO (10:32)
[2020-02-07] MEDS ORDERED: MULT-735 PO (10:32)
== END 2020-02-04 01:50 | disposition home or self-care (01) ==
LOC: ER 23:12
DX: K11.5 Sialolithiasis (principal); E04.1 Nontoxic single thyroid nodule; I48.91 Unspecified atrial fibrillation; I11.0 Hypertensive heart disease with heart failure; I50.9 Heart failure, unspecified; Z86.718 Personal history of other venous thrombosis and embolism; Z87.442 Personal history of urinary calculi; Z86.73 Personal history of transient ischemic attack (TIA), and cerebral infarction without residual deficits; Z88.2 Allergy status to sulfonamides; Z88.1 Allergy status to other antibiotic agents; Z88.5 Allergy status to narcotic agent
CPT/HCPCS: 36415; 70450; 70490; 80053; 81001; 85025; 87070; 87086; 87880; 99285

== ENCOUNTER 2020-05-12 13:42 | Emergency (ER) | payer OTHER ==
[~2020-05-12] VITALS: Ht 157.5 cm; Wt 97.1 kg
[~2020-05-12 13:42] MED LIST: AMOX1TAB61 PO; ASPI-630 PO; CARV12.5 PO; CEPH-264 PO; CLOT15CR5 TP; FERR325T14 PO; GABA-586 PO; HYDR-2155 PO; HYDR-3165 PO; LISI10TA2 PO; MULT-735 PO
--- NOTE | 2020-05-12 14:10 | PHYS DOC ---
Past History Past Medical History: A-Fib, CHF, CVA, DVT, Hypertension, Kidney Stones, Stroke Past Surgical History: Cholecystectomy, Hysterectomy, Tonsillectomy Alcohol Use: None General Adult EDM: Chief Complaint: COUGH HPI: HPI: 70 yo F PMH CAD. CHF, COPD, CVA, afib (no AC), HTN, BELLE on cpap qhs and DVT presents to the ed with c/o dry cough and generalized fatigue reports her daughter who she lives with tested positive for Covid 1 week ago when she is requesting a Covid test. Patient reports long history of smoking but is never had to stay in the hospital for COPD exacerbation. Patient reports lethargy and sore throat, no chest pain, leg swelling, nausea, vomiting, diarrhea, headache, neck stiffness, persistent neurologic deficits. Patient reports she only came to the emergency room daughter forced her to come in. Review of Systems: Review of Systems: Constitutional: Denies fever or chills Eyes: Denies red eye or eye discharge HENT: Denies nasal congestion or rhinorrhea Respiratory: Denies hemoptysis or increased work of breathing Cardiovascular: Denies chest pain or edema GI: Denies abdominal pain, nausea, vomiting, bloody stools or diarrhea : Denies dysuria or hematuria Musculoskeletal: Denies back pain or joint pain Integument: Denies rash or diaphoresis Neurologic: Denies headache, focal weakness or sensory changes Endocrine: Denies polyuria or polydipsia Lymphatic: Denies swollen glands Psychiatric: Denies depression or anxiety Allergies: Allergies: Allergies Coded Allergies Type Severity Reaction Last Updated Verified Sulfa (Sulfonamide Antibiotics) Allergy Unknown 05/12/20 Yes levofloxacin Allergy Unknown 05/12/20 Yes morphine Allergy Unknown 05/12/20 Yes Physical Exam: PE: Constitutional: Well developed, well nourished, no acute distress, non-toxic appearance. HENT: Normocephalic, atraumatic, Eyes: EOMI, conjunctiva normal, no discharge. Neck: Normal range of motion, supple, Cardiovascular: S1/2 present, regular rhythm Lungs & Thorax: Speaking in full sentences, bilateral equal chest rise, no tachypnea or increased work of breathing, bl lower lobe wheezing, Abdomen: soft, no tenderness, Skin: Warm, dry, no erythema, no rash. [] Back: No tenderness, no CVA tenderness. [] Extremities: No tenderness, no cyanosis, no edema Neurologic: Alert and oriented X 3, normal motor function, normal sensory function, no focal deficits noted. [] Psychologic: Affect normal, judgement normal, mood normal. [] Current Patient Data: Vital Signs: Vital Signs Date Time Temp Pulse Resp B/P (MAP) Pulse Ox O2 Delivery O2 Flow Rate FiO2 05/12/20 13:56 98.6 95 23 168/96 (120) 95 Room Air EKG: EKG: Sinus rhythm at 82 bpm, left axis deviation, QTC 466, T wave inversion aVL, no ST elevations or ST depressions, no active chest pain Radiology/Procedures: Radiology/Procedures: IMAGING REPORT Signed PATIENT: SHERRI BERGER SACCOUNT: [id number] : 1950 LOCATION: ER AGE: 70 SEX: F EXAM STATUS: REG ER ORD. PHYSICIAN: ZACH ENG DO REASON: shortness of breath, DRY COUGH X1 WEEK PROCEDURE: CHEST AP ONLY EXAM: CHEST 1 VIEW History: Shortness of breath COMPARISON: 02/16/2020 TECHNIQUE: Single portable radiograph of the chest FINDINGS: Mild cardiomegaly. There are patchy bibasilar lung airspace opacities. The costophrenic sulci are clear and well demarcated. IMPRESSION: Patchy bibasilar lung airspace opacities likely atelectasis or infiltrates. Follow-up to resolution. Electronically signed by: Zeus Schaffer MD (05/12/2020 2:35 PM) [id number] DICTATED AND SIGNED BY: ZEUS SCHAFFER MD DATE: 05/12/20 1431 CC: ESDRAS HUDSON; ZACH ENG DO ~MTH0 0 Heart Score: Risk Factors: Risk Factors: DM, Current or recent (<one month) smoker, HTN, HLP, family history of CAD, obesity. Risk Scores: Score 0 - 3: 2.5% MACE over next 6 weeks - Discharge Home Score 4 - 6: 20.3% MACE over next 6 weeks - Admit for Clinical Observation Score 7 - 10: 72.7% MACE over next 6 weeks - Early Invasive Strategies Course & Med Decision Making: Course & Med Decision Making Pertinent Labs and Imaging studies reviewed. (See chart for details) COVID-19 CRITERIA: The patient was evaluated during the global COVID-19 pandemic, and that diagnosis was suspected/considered upon their initial presentation. Their evaluation, treatment and testing was consistent with current guidelines for patients who present with complaints or symptoms that may be related to COVID-19. Concern for PUI, oxygen drops on low 90s when resting -does not require any home oxygen but when resting does have belle, uses cpap. Patient with no retractions, tachypnea and speaking full sentences but does have bilateral lower lobe wheezing. Also with uncontrolled hypertension, asymptomatic. Patient very difficult IV stick and required multiple attempts by RNs in the ED. Patient refusing any further lab work or evaluation and is requesting to be discharged home AGAINST MEDICAL ADVICE. My plan is admit patient for atypical pneumonia, COPD exacerbation and PUI-patient with multiple comorbidities and I am concerned she will not do well-will likely need oxygen. Patient has systemic capacity and is refusing to be admitted AGAINST MEDICAL ADVICE. Further evaluation for Covid complications was refused by patient including serial troponins, D-dimer or PE study. Patient aware that she is not medically cleared and has decisional capacity. RN spoke to daughter. Between RN, myself and daughter we are unable to convince patient to stay for further medical management and admission. Life-threatening processes were not excluded listed below. Life/limb-threatening differential includes but is not limited to, Covid complications, infection/sepsis, congestive heart failure or pulmonary edema, lung cancer intrathoracic mass, bronchoconstriction, asthma/COPD/lung disease exacerbation, pneumothorax or hemothorax, pulmonary emboli, autoimmune/neurologic disease or toxidrome. Life/limb-threatening differential includes but is not limited to, ACS, dysrhythmia, pneumothorax or hemothorax, pulmonary embolus, pneumonia, bronchoconstriction, pulmonary edema, angioedema, epiglottitis, tracheitis, Andrea's angina, RPA/METAL SANDER, anaphylaxis, angioedema, cardiac tamponade or murmurs, pericarditis, myocarditis, poisoning or toxicity, sepsis or autoimmune/neurologic disease. The patient has decided to leave our facility against medical advice. I have assessed patient's ability to make informed decision and feel the patient has the capacity to comprehend information regarding the current medical condition and appreciates the impact of the disease or condition and the consequences of various options for treatment, including foregoing treatment. The patient possesses the ability to evaluate all treatment options, comparing the risks and benefits of each option, communicate his or her choice in a consistent manner over time, and is able to make rational choices. I explained to the patient further testing, treatment, and evaluation I [facility] as well as any possible alternatives that can be accomplished in a timely manner. I have outlined the possible risks of foregoing any or all of these interventions and the patient understands and acknowledges that the decision to leave may result in undesirable consequences such as , permanent disability, and/or loss of current lifestyle. Even though leaving AMA is not ideal, I have instructed the patient to follow any discharge instructions given, take any medications prescribed, and resume care as soon as possible with another provider. This conversation was witnessed by another member of the emergency department staff and we clearly communicated the patient is welcome to return anytime to continue care at our facility. I spoken with the patient and her caregivers. I explained the patient's condition, diagnoses and treatment plan based on the information available to me at this time. I have answered the patient and her caregiver's questions and addressed any concerns. The patient and her caregivers have a good understanding of patient's diagnosis, condition and treatment plan as can be expected at this point. Vital signs have been stable. Patient's condition is stable and appropriate for discharge from the emergency department. Patient will pursue further outpatient evaluation with primary care physician or other designated or consulting physician as outlined in the discharge instructions. The patient and/or caregivers are agreeable to this plan of care and follow-up instructions have been explained in detail. The patient and/or caregivers have received these instructions in written form and have expressed an understanding of the discharge instructions. The patient and/or caregivers are aware that any significant change of condition or worsening of symptoms should prompt immediate return to this or the closest emergency department or call to 911. Florian Disclaimer: Florian Disclaimer: This electronic medical record was generated, in whole or in part, using a voice recognition dictation system. Departure Departure: Impression: Primary Impression: Cough Additional Impressions: Dyspnea PNA (pneumonia) COPD exacerbation Person under investigation for COVID-19 Disposition: 07 AMA/ELOPED/LWBS Condition: STABLE Referrals: ESDRAS HUDSON (PCP) Patient Instructions: Chronic Obstructive Pulmonary Disease, Discharge Against Medical Advice, Pneumonia, Adult Additional Instructions: FOLLOW UP WITH: [facility] Address: [address] [place] [address] Return to ED immediately if your oxygen level drops below 90% (purchase a pulse oximetry at a medical supply store), difficulties breathing including rapid breathing or increased work of breathing (skin sucking under ribs), chest pain or stroke-like symptoms (facial droop, speech changes, arm/leg weakness). You have been tested for COVID-19. It is an infection caused by a new type of coronavirus. COVID-19 will cause cold-like or mild flu symptoms in most. It can cause more severe symptoms like problems breathing in some. There is no treatment for COVID-19. The body will clear the infection over time. Self-care will help to ease discomfort. Steps to Take: Self-Care Rest as needed. Healthy habits may help you feel better. Steps include: Choose healthy foods including fruits and vegetables. Drink water throughout the day. Get plenty of sleep each night. If you smoke, try to quit. It may ease breathing. Avoid alcohol. Keep Others Healthy The virus can spread to others. Droplets are released every time you sneeze or cough. The droplets can get into the mouth, nose, or eyes of people near you and lead to in fection. To lower the chances of spreading COVID-19 to others: Stay at home until your doctor has said it is safe to leave. If you tested positive this will mean staying isolated until both of the following are true: At least 7 days have passed since the start of illness. You are free of fever for at least 72 hours without the use of medicine. During this time: - Avoid public areas, events, or transportation. Do not return to work or school until your doctor has said it is safe to do so. - Call ahead if you need to go to a medical center. Let them know you may have COVID-19. It will help them guide you where to go. They may also ask you to wear a facemask when you come to the office. - If you call for emergency medical services, let them know you may have COVID- 19. While at home: - Try to avoid close contact with others. Stay about 6 feet away. - If possible, spend most of your time in a separate room from others. - Use a face mask if you will be in close contact with others such as sharing a room or vehicle. - Have someone wipe down common surfaces in the home. Use household heel washer stringing machine operator every day on areas like doorknobs, counters, or sinks. - Cough or sneeze into a tissue. Throw the tissue away right after use. If a tissue is not available, cough or sneeze into your elbow. - Wash your hands often. Wash them after sneezing or coughing. Use soap and water and wash for at least 20 seconds. Alcohol based hand filter cleaner can be used if soap and water is not available. - Do not prepare food for others. Avoid sharing personal items like forks, spoons, or toothbrushes. - Avoid close contact with pets while you are sick. There is no evidence of the virus passing to pets. This is a safety step until more is known about this virus. Isolation can be frustrating. Social interaction can help. Keep in touch with friends and family through phone and tech options. You can still interact with others in your home, just keep a safe distance of about 6 feet. Follow-up: Your doctors office will check in with you to see if there are any changes in your health. You may be asked to keep track of symptoms to share with them. They will also let you know when you are clear to be in public again. Problems to Look Out For: Contact your doctor if your recovery is not going as you expect. Get emergency care if you have problems such as: - Trouble breathing - Nonstop chest pain or pressure - Changes in awareness, confusion, or problems waking - Lips or face have bluish color - Worsening of symptoms If you think you have an emergency, call for emergency medical services right away. As taken from [facility] Fluticasone Propionate (FLOVENT 44MCG HFA) 10.6 Gm Aer.w.adap 2 PUFF IH BID for copd for 30 Days, #1 INHALER 0 Refills Prov: ZACH ENG DO 05/12/20 Albuterol Sulfate (VENTOLIN HFA INHALER) 18 Gm Hfa.aer.ad 1 PUFF IH PRN Q4HRS PRN for FOR ASTHMA for 7 Days, #1 INHALER 0 Refills Prov: ZACH ENG DO 05/12/20 Prednisone (PREDNISONE) 10 Mg Tablet 40 MG PO DAILY for copd for 4 Days, #16 TAB Take 4 tablets daily for 4 days Prov: ZACH ENG DO 05/12/20 Azithromycin (AZITHROMYCIN TABLET) 250 Mg Tablet 1 PKG PO UD for lung nodule for 5 Days, #4 TAB 0 Refills 1 tablet per day x 4 days Prov: ZACH ENG DO 05/12/20 ZACH ENG DO May 12, 2020 14:10
[2020-05-12] MEDS ORDERED: DEXAMETHASONE SOD PHOS 10 MG/ML VIAL. IV ONE (14:30)
[2020-05-12] MEDS ORDERED: AZITHROMYCIN 500 MG in IV NORMAL SALINE 250ML 250 ML IV ONE (14:30)
[2020-05-12] MEDS ORDERED: IV NORMAL SALINE 50ML 50 ML ONE (14:33)
[2020-05-12] MEDS ORDERED: IV NORMAL SALINE 250ML 250 ML ONE (14:33)
[2020-05-12] MEDS ORDERED: cefTRIAXone SODIUM 1 GM VIAL ONE (14:34)
[2020-05-12] MEDS ORDERED: AZITHROMYCIN 500 MG VIAL. IV ONE (14:34)
--- NOTE | 2020-05-12 14:37 | RAD ---
EXAM: CHEST 1 VIEW History: Shortness of breath COMPARISON: 02/16/2020 TECHNIQUE: Single portable radiograph of the chest FINDINGS: Mild cardiomegaly. There are patchy bibasilar lung airspace opacities. The costophrenic reese lci are clear and well demarcated. IMPRESSION: Patchy bibasilar lung airspace opacities likely atelectasis or infiltrates. Follow-up to resolution. Electronically signed by: Zeus Schaffer MD (05/12/2020 2:35 PM) [id number]
--- NOTE | 2020-05-12 14:50 | EKG ---
[address] [address] Test Date: 2020-05-12 Test Time: 14:42:15 Pat Name: SHERRI BERGER Department: Room: Gender: F Flat Ironer: JACKIE : 1950 Requested By: ZACH ENG Order Number: [id number] Reading MD: Measurements Intervals [place] Rate: 82 P: -1 WV: 196 QRS: -16 QRSD: 116 T: 95 QT: 396 QTc: 466 Interpretive Statements SINUS RHYTHM LOW LIMB LEAD VOLTAGE T ABNORMALITY IN HIGH LATERAL LEADS ABNORMAL ECG RI6.02 No previous ECG available for comparison
[2020-05-12 15:46] LABS: INFLUENZA A PATIENT NEGATIVE (NEGATIVE); INFLUENZA B PATIENT NEGATIVE (NEGATIVE)
[2020-05-12] MEDS ORDERED: AZITHROMYCIN 250 MG TABLET. PO ONE (17:00)
[2020-05-12] MEDS ORDERED: DEXAMETHASONE 4 MG TABLET PO ONE (17:00)
[2020-05-12] MEDS ORDERED: AZIT250T6 PO (17:15)
[2020-05-12] MEDS ORDERED: ALBU2.5V8 IH (17:15)
[2020-05-12] MEDS ORDERED: FLUT10.6 IH (17:15)
[2020-05-12] MEDS ORDERED: PRED-220 PO (17:15)
[2020-05-12 17:54] VITALS: BP 211/116
== END 2020-05-12 18:01 | disposition left against medical advice (07) ==
LOC: ER 13:42
DX: U07.1 COVID-19 (principal); J12.82 Pneumonia due to coronavirus disease 2019; J44.1 Chronic obstructive pulmonary disease with (acute) exacerbation; I48.91 Unspecified atrial fibrillation; I11.0 Hypertensive heart disease with heart failure; I50.9 Heart failure, unspecified; G47.33 Obstructive sleep apnea (adult) (pediatric); Z86.718 Personal history of other venous thrombosis and embolism; Z86.73 Personal history of transient ischemic attack (TIA), and cerebral infarction without residual deficits; Z87.442 Personal history of urinary calculi; Z90.49 Acquired absence of other specified parts of digestive tract; Z90.710 Acquired absence of both cervix and uterus
CPT/HCPCS: 36415; 71045; 83605; 84484; 87040; 87804; 93005; 99285; C9803; J8540; U0003

== ENCOUNTER 2020-07-16 21:25 | Inpatient (IN) | payer MEDICARE, OTHER ==
[~2020-07-16] VITALS: Ht 160 cm; Wt 92.1 kg
[~2020-07-16 21:25] MED LIST changes: +ALBU2.5V8 IH; +AZIT250T6 PO; +FLUT10.6 IH; +LISI10TA16 PO; -LISI10TA2 PO; +PRED-220 PO
[2020-07-16] MEDS ORDERED: NITROGLYCERIN PREMIX 250 ML IV ONE (21:45)
[2020-07-16] MEDS ORDERED: NITROGLYCERIN SUBLINGUAL 0.4 MG BOTTLE OF 25. SL PRN (21:45)
[2020-07-16] MEDS ORDERED: ONDANSETRON PF 4 MG/2 ML VIAL. ONE (21:59)
[2020-07-16] MEDS ORDERED: ONDANSETRON PF 4 MG/2 ML VIAL. IVP ONE (22:00)
[2020-07-16 22:07] LABS: CALCIUM 9.4 mg/dL (8.5-10.1); CREATININE 1.1 mg/dL (0.6-1.0); GFR 49.1; POTASSIUM 4.7 mmol/L (3.5-5.1)
[2020-07-16 22:10] LABS: BASO # 0.1 x10^3/uL (0.0-0.2); BASO % 1 % (0-3); EOS # 0.1 x10^3/uL (0.0-0.7); EOS % 0 % (0-3); HEMATOCRIT 44.1 % (36.0-47.0); LYMPH % 14 % (24-48); MEAN CORPUSCULAR HEMOGLOBIN 28 pg (25-35); MEAN CORPUSCULAR HGB CONC 32 g/dL (31-37); MEAN CORPUSCULAR VOLUME 87 fL (79-100); MONO # 0.6 x10^3/uL (0.0-1.1); MONO % 4 % (0-9); NEUT # 11.6 x10^3uL (1.8-7.7); NEUT % 81 % (31-73); PLATELET COUNT 281 x10^3/uL (140-400); RED CELL DISTRIBUTION WIDTH 16.9 % (11.5-14.5); WHITE BLOOD COUNT 14.2 x10^3/uL (4.0-11.0)
[2020-07-16 22:20] LABS: ALBUMIN 3.7 g/dL (3.4-5.0); ALBUMIN/GLOBULIN RATIO 0.8 (1.0-1.7); TOTAL BILIRUBIN 0.4 mg/dL (0.2-1.0); TOTAL PROTEIN 8.1 g/dL (6.4-8.2)
[2020-07-16] MEDS ORDERED: NALOXONE 0.4 MG/ML VIAL. IV ONE (22:30)
[2020-07-16] MEDS ORDERED: NALOXONE 0.4 MG/ML VIAL. ONE (22:34)
--- NOTE | 2020-07-16 22:51 | RAD ---
EXAM: AP View of the chest DATE: 07/16/2020 9:27 PM INDICATION: Shortness of breath COMPARISON: No Prior FINDINGS/ IMPRESSION: 1. Heart is mildly enlarged. Aorta is tortuous with atherosclerotic calcifications. 2. Bilateral perihilar and left greater than right lung base airspace opacities likely multifocal co nsolidative process as pneumonia. Pulmonary edema is also within the differential. Imaging follow-up to resolution is recommended. 3. No pleural effusion or pneumothorax. Electronically signed by: Tobias Montoya MD (07/16/2020 10:49 PM) [facility]
--- NOTE | 2020-07-16 23:05 | EKG ---
[address] [address] Test Date: 2020-07-16 Test Time: 22:11:31 Pat Name: SHERRI BERGER Department: Room: Gender: F Inletter: : 1950 Requested By: MESHA CROWELL Order Number: [id number] Reading MD: Measurements Intervals [place] Rate: 66 P: 36 RI: 210 QRS: -27 QRSD: 108 T: 111 QT: 468 QTc: 493 Interpretive Statements SINUS RHYTHM LEFTWARD AXIS LOW LIMB LEAD VOLTAGE QRS(T) CONTOUR ABNORMALITY CONSISTENT WITH INFERIOR INFARCT PROBABLY OLD T ABNORMALITY IN HIGH LATERAL LEADS ABNORMAL ECG RI6.02 No previous ECG available for comparison
[2020-07-16 23:26] LABS: ACETAMIN 136.4 mcg/mL (10-30); ETHANOL < 10 mg/dL (0-10); SALIC < 2.8 mg/dL (2.8-20.0)
[2020-07-17] VITALS (23 sets, daily range): BP systolic 94–197; BP diastolic 56–114
[2020-07-17] MEDS ORDERED: PIPERACILLIN/TAZOBACTAM 4.5 GM in IV NORMAL SALINE 50ML 50 ML IV ONE
[2020-07-17] MEDS ORDERED: PIPERACILLIN/TAZOBACTAM 4.5 GM VIAL IV ONE
[2020-07-17] MEDS ORDERED: IV NORMAL SALINE 50ML 50 ML ONE
[2020-07-17] MEDS ORDERED: IV DEXTROSE 5% 250 ML IV ONE (00:01)
--- NOTE | 2020-07-17 00:01 | PHYS DOC ---
Past History Past Medical History: A-Fib, CHF, CVA, DVT, Hypertension, Kidney Stones, Stroke Past Surgical History: Cholecystectomy, Hysterectomy, Tonsillectomy Alcohol Use: None Adult General Chief Complaint Chief Complaint: SHORTNESS OF BREATH HPI HPI Patient is a 70-year-old female with a past medical history significant for CAD, CVA, A. fib, hypertension, and chronic pain who is DNR/DNI who presents from home via EMS for altered mental status, fatigue over the last 3 days per daughter. Daughter came in as well and stated that she was just accepted into [facility] [place] and will be moving there shortly. States that over the last couple of days she seemed excessively tired and seemed like she was having trouble breathing. States she was falling asleep fairly easily and seemed a little confused. Daughter denies any recent falls, illnesses, fevers. Daughter states that she did not complain about any headaches, chest pain, abdominal pain, nausea, vomiting, diarrhea. Daughter states that she thinks that she is depressed because she is going to the [facility] [place]. 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 Review of Systems Review of Systems Review of systems otherwise unremarkable except noted in HPI Current Medications Current Medications Current Medications Medications (Trade) Dose Ordered Sig/Luiza Start Time Stop Time Status Last Admin Dose Admin Acetylcysteine 4.84 gm/Dextrose 524.2 ml @ 125 mls/hr 1X ONCE 07/17/20 00:40 07/17/20 04:51 UNV Acetylcysteine 9.68 gm/Dextrose 1,048.4 ml @ 62.5 mls/ hr 1X ONCE 07/17/20 04:40 07/17/20 21:26 UNV Acetylcysteine 14.52 gm/Dextrose 272.6 ml @ 200 mls/hr 1X ONCE 07/16/20 23:45 07/17/20 01:06 UNV Naloxone HCl (Narcan) 0.4 mg 1X ONCE 07/16/20 22:30 07/16/20 23:38 DC 07/16/20 22:35 0.4 MG Nitroglycerin (Nitrostat) 0.4 mg PRN Q5MIN PRN 07/16/20 21:45 Nitroglycerin/ Dextrose 250 ml @ 0 mls/hr 1X ONCE 07/16/20 21:45 07/16/20 22:00 DC 07/16/20 21:58 30 MLS/HR Ondansetron HCl (Zofran) 4 mg STK-MED ONCE 07/16/20 21:59 07/16/20 22:00 DC Piperacillin Sod/ Tazobactam Sod 4.5 gm/Sodium Chloride 50 ml @ 100 mls/hr 1X ONCE 07/16/20 23:45 07/17/20 00:14 UNV Allergies Allergies Allergies Coded Allergies Type Severity Reaction Last Updated Verified Sulfa (Sulfonamide Antibiotics) Allergy Unknown 05/12/20 Yes levofloxacin Allergy Unknown 05/12/20 Yes morphine Allergy Unknown 05/12/20 Yes Physical Exam Physical Exam Constitutional: Well developed, well nourished, appears ill, in acute respiratory distress, altered HENT: Normocephalic, atraumatic, bilateral external ears normal, oropharynx moist, no oral exudates, nose normal. [] Eyes: PERRLA and pupils 2 mm bilaterally, conjunctiva normal, no discharge. [] Neck: Normal range of motion, Cardiovascular:Heart rate regular rhythm, no murmur [] Lungs & Thorax: Bradypnea, bilateral global rhonchi and rails, worse on the left Abdomen: soft, no tenderness, Skin: Warm, dry, Extremities: No tenderness, no cyanosis, no clubbing, ROM intact, no edema. [] Neurologic: GCS of 11 (E3, V3, M5), moving all extremities, equal bilateral patellar reflexes Current Patient Data Vital Signs Vital Signs Date Time Temp Pulse Resp B/P (MAP) Pulse Ox O2 Delivery O2 Flow Rate FiO2 07/16/20 23:31 97.9 64 8 189/98 (128) 83 Room Air Lab Results Laboratory Tests Test 07/16/20 21:35 07/16/20 21:52 White Blood Count 14.2 x10^3/uL (4.0-11.0) H Red Blood Count 5.10 x10^6/uL (3.50-5.40) Hemoglobin 14.0 g/dL (12.0-15.5) Hematocrit 44.1 % (36.0-47.0) Mean Corpuscular Volume 87 fL (79-100) Mean Corpuscular Hemoglobin 28 pg (25-35) Mean Corpuscular Hemoglobin Concent 32 g/dL (31-37) Red Cell Distribution Width 16.9 % (11.5-14.5) H Platelet Count 281 x10^3/uL (140-400) Neutrophils (%) (Auto) 81 % (31-73) H Lymphocytes (%) (Auto) 14 % (24-48) L Monocytes (%) (Auto) 4 % (0-9) Eosinophils (%) (Auto) 0 % (0-3) Basophils (%) (Auto) 1 % (0-3) Neutrophils # (Auto) 11.6 x10^3uL (1.8-7.7) H Lymphocytes # (Auto) 2.0 x10^3/uL (1.0-4.8) Monocytes # (Auto) 0.6 x10^3/uL (0.0-1.1) Eosinophils # (Auto) 0.1 x10^3/uL (0.0-0.7) Basophils # (Auto) 0.1 x10^3/uL (0.0-0.2) Sodium Level 141 mmol/L (136-145) Potassium Level 4.7 mmol/L (3.5-5.1) Chloride Level 104 mmol/L (98-107) Carbon Dioxide Level 25 mmol/L (21-32) Anion Gap 12 (6-14) Blood Urea Nitrogen 20 mg/dL (7-20) Creatinine 1.1 mg/dL (0.6-1.0) H Estimated GFR (Cockcroft-Gault) 49.1 BUN/Creatinine Ratio 18 (6-20) Glucose Level 235 mg/dL (70-99) H Calcium Level 9.4 mg/dL (8.5-10.1) Total Bilirubin 0.4 mg/dL (0.2-1.0) Aspartate Amino Transferase (AST) 17 U/L (15-37) Alanine Aminotransferase (ALT) 22 U/L (14-59) Alkaline Phosphatase 109 U/L (46-116) Troponin I Quantitative < 0.017 ng/mL (0-0.055) VH-Eob-X-Type Natriuretic Peptide 1627 pg/mL (0-124) H Total Protein 8.1 g/dL (6.4-8.2) Albumin 3.7 g/dL (3.4-5.0) Albumin/Globulin Ratio 0.8 (1.0-1.7) L Salicylates Level < 2.8 mg/dL (2.8-20.0) L Salicylate Last Dose Date Unknown Salicylate Last Dose Time Unknown Acetaminophen Level 136.4 mcg/mL (10-30) H Acetaminophen Last Dose Date Unknown Acetaminophen Last Dose Time Unknown Ethyl Alcohol Level < 10 mg/dL (0-10) POC Venous pH 7.37 (7.32-7.42) POC Venous pCO2 44 mmHg (41-51) POC Venous pO2 51 mmHg (20-40) H Venous Blood HCO3 25 mmol/L (24-28) POC Venous O2 Saturation (Bladimir) 84 % POC FiO2 35 EKG EKG EKG with a rate of 66, QRS of 108, QTc of 493, no STEMI. Abnormal EKG with T wave flattening in [address] scant [address] depression in 3 and V3 [] Radiology/Procedures Radiology/Procedures [] FINDINGS/ IMPRESSION: 1. Heart is mildly enlarged. Aorta is tortuous with atherosclerotic calcifications. 2. Bilateral perihilar and left greater than right lung base airspace opacities likely multifocal consolidative process as pneumonia. Pulmonary edema is also within the differential. Imaging follow-up to resolution is recommended. 3. No pleural effusion or pneumothorax. Electronically signed by: Tobias Montoya MD (07/16/2020 10:49 PM) [facility] Heart Score C/O Chest Pain: N/A Risk Factors: Risk Factors: DM, Current or recent (<one month) smoker, HTN, HLP, family history of CAD, obesity. Risk Scores: Risk Factors: DM, Current or recent (<one month) smoker, HTN, HLP, family history of CAD, obesity. Course & Med Decision Making Course & Med Decision Making Patient is a 70-year-old female presents from home, with altered mental status, bradypnea with hypoxia, and respiratory distress Vital signs notable for hypertension, bradypnea and hypoxia on room air. Physical exam noted above. Patient immediately placed on the monitor with 2 peripheral IVs placed. Placed in CPAP of 6 and started a nitroglycerin drip given patient's history of heart failure, exam suggestive of pulmonary edema and increased work of breathing. Chest x-ray suggestive of combination pulmonary edema and pneumonia. Cultures obtained. Patient started on IV antibiotics. After a short time patient's mentation began to improve and vital signs improved as well although respiratory rate was now 6-10 and patient's pupils were pinpoint. Daughter arrived with medication list and patient had hydrocodone on the list. Given dose of Narcan which patient almost immediately responded to. Patient awake, alert and able to speak. Respirations and oxygenation improved. Laboratory analysis notable for neutrophilic leukocytosis, significantly elevated BNP and acetaminophen level greater than 130 at approximately 6-1/2 hours out from ingestion of endorsed 15 hydrocodone. When patient was asked when she took the hydrocodone she stated approximately 5 PM. When asked why she took so many she stated because I wanted to commit suicide. Using the acetaminophen nomogram, patient acetaminophen level above toxic level and N-acetylcysteine treatment indicated. Started in the ED. PAT team consulted and evaluated patient and felt she definitely wanted to commit suicide and needed some further psychiatric help but currently her medical condition is more appropriate for admission to the hospital and a psychiatric facility. Stated as soon as she was medically cleared she should be transferred to a psychiatric facility. Patient will be admitted to the hospital for continued treatment of acetaminophen toxicity, treatment for sepsis most likely secondary to pneumonia and decompensated heart failure with pulmonary edema. [] Dragon Disclaimer Dragon Disclaimer This electronic medical record was generated, in whole or in part, using a voice recognition dictation system. Departure Departure: Impression: Primary Impression: Acetaminophen toxicity Additional Impressions: Sepsis Pneumonia Pulmonary edema Disposition: ADMITTED INPT THIS HOSP Admitting Physician: Santos Berry Condition: IMPROVED Referrals: ESDRAS HUDSON (PCP) Problem Qualifiers MESHA CROWELL MD Jul 17, 2020 00:01
[2020-07-17] MEDS ORDERED: ACETYLCYSTEINE INJ 6 GM/30 ML VIAL IV ONE ×4 (00:14→00:26)
[2020-07-17] MEDS ORDERED: METOCLOPRAMIDE HCL 10 MG/2 ML VIAL. IVP ONE (00:15)
[2020-07-17] MEDS ORDERED: NALOXONE 0.4 MG/ML VIAL. IV ONE (00:15)
[2020-07-17] MEDS ORDERED: ACETYLCYSTEINE IV ONE ×3 (01:00→05:00)
[2020-07-17] MEDS ORDERED: DEXTROSE 5% IV ONE ×3 (01:00→05:00)
[2020-07-17] MEDS ORDERED: FERR325T14 PO (01:06)
--- NOTE | 2020-07-17 01:27 | NUR ---
Admission Note: Pt transported via EMS from ED to ICU 2. Pt transferred from cart to bed with three person assist. VSS. No c/o pain at this time. Pt vomitting brown with mucus noted. Photos taken of wounds (see wound assessment), pt answering questions and following commands but not opening eyes, pt oriented to room, safety precautions, and plan of care for the night. Will continue to monitor.
--- NOTE | 2020-07-17 02:42 | NUR ---
Per report from ED RN...pt's daughter has arranged for the pt to be admitted to [facility] which is where the daughter, Maeve Cage, works. The pt does not want to go to a [facility]. Pt admitted in ED to taking the pain medication with the intention of killing herself to avoid going to [facility]. Pt is currently a 1:1 for patient's safety until she can be cleared by the PAT team once medically stable.
[2020-07-17 07:45] LABS: ACETAMIN 14.7 mcg/mL (10-30)
--- NOTE | 2020-07-17 07:45 | NUR ---
Pt having episodes of nausea and vomiting, approx 75ml x2 of dark brown emesis. Some loose productive coughing afterward. Dr Berry paged for zofran orders.
--- NOTE | 2020-07-17 08:00 | NUR ---
Pt still expressing SI, asked if she knew why she was brought into hospital, replied "yes, I was trying to kill myself." Pt asked if she still wanted to commit suicide, replied "If I have to go to a facility then I would rather be ." 08 Daughter Maeve called for updated, explained to her process- after medically cleared, then pt will be evaluated by PAT team, the hospitalist would go with their recommendations for treatment. Daughter does not want pt to come back home, she said her father last August and since then her mother has declined, self care/depression. Maeve says she can not manage her care at home anymore for which she has a second worker job and can not monitor her 21/11. Reassured daughter that case management would be able to provide different options when pt is ready for discharge. Daughter agreed with current plan. Addendum: 07/17/20 at 0909 by FRANK MEDELLIN RN Daughter also stated that pt took at least 50 [place]. Pt had 10 in a bottle by bed-that is empty and another bottle of 40 which is also empty.
[2020-07-17] MEDS: ONDANSETRON PF 4 MG/2 ML VIAL. IVP PRN ×2 (08:32→13:44)
--- NOTE | 2020-07-17 08:45 | NUR ---
Pt given zofran at 0815, resting quietly on side with eyes shut, no evidence of nausea.
--- NOTE | 2020-07-17 10:31 | RAD ---
XR CHEST 1V 07/17/2020 10:06 AM INDICATION: Bilateral pneumonia COMPARISON: 07/16/2020 TECHNIQUE: Portable frontal view of the chest is provided. FINDINGS: The cardiomediastinal silhouette is within normal limits. Improved aeration of the lung bases compare d prior examination. Flattening of the diaphragms may be seen with air trapping as may be seen with C OPD. Atherosclerotic changes of the thoracic aorta are present. There are no significant pleural effusions. There is no pulmonary vascular congestion. No pneumothora x. No suspicious osseous abnormality. IMPRESSION: Improved aeration of the lung bases without residual infiltrates. Electronically signed by: Aicha Akins MD (07/17/2020 10:29 AM) [id number]
--- NOTE | 2020-07-17 13:31 | HP ---
ADMIT DATE: 07/17/2020 ATTENDING PHYSICIAN: Dr. Newell CHIEF COMPLAINT: Altered mentation. HISTORY OF PRESENT ILLNESS: The patient is a 70-year-old female with multiple medical issues. She has had 2 strokes. Her . She has coronary artery disease, chronic pain syndrome. She had a prescription for hydrocodone. The daughter states that she took approximately 50 hydrocodone tablets. She was obtunded. She was given Narcan with some improvement. There was some vascular congestion. Diuretics were used. She also had elevated Tylenol level greater than 100. She was started on N-acetylcysteine protocol. The patient remains very despondent and depressed after her last year. She is admitted then for further treatment and evaluation. PAST MEDICAL HISTORY: Significant for paroxysmal atrial fibrillation, congestive heart failure, two strokes with right-sided hemiparesis and DVT, hypertension, kidney stones. PAST SURGICAL HISTORY: Includes cholecystectomy, hysterectomy, and tonsillectomy. ALLERGIES: She has multiple allergies including SULFA DRUGS, LEVAQUIN AND MORPHINE, exact reaction is unclear. CURRENT MEDICATIONS: Include albuterol, aspirin, Coreg, ferrous sulfate, fluticasone, Neurontin, hydrocodone, lisinopril, and multivitamin. SOCIAL HISTORY: She does have a smoking history. She denies any alcohol use. She has been debilitated and lives with her daughter. FAMILY HISTORY: Noncontributory. REVIEW OF SYSTEMS: Significant for the generalized debilitation. She has had stroke. She has been very depressed, becoming more and more total care. It was a plan for the daughter who works at the local [facility] [employer] for her to be admitted to [facility] facility. Prior to that, she stated she did not want to live anymore and that she would rather ____ go to a retirement. All other systems reviewed and turned to be negative. There is no COVID exposure history. PHYSICAL EXAMINATION: GENERAL: When I saw her, this is a pleasant female with a very flat affect. INITIAL VITAL SIGNS: Showed blood pressure 150/100, pulse is 78 and regular. She was afebrile, oxygen saturation 94% on 3 liters nasal cannula. HEENT: Head is without trauma. Pupils are reactive. Sclerae nonicteric. The oropharynx is clear. NECK: Supple. LUNGS: Shallow respirations. CARDIOVASCULAR: Showed regular heart tones. No gallops. ABDOMEN: Obese, protuberant. No organomegaly. Bowel sounds are hypoactive. EXTREMITIES: Show no cyanosis or edema. NEUROLOGIC: Focally intact. Speech is fluent. Very flat affect. She is nonambulatory at this time. SKIN: Otherwise warm and dry. PERTINENT LABORATORY STUDIES: The hemoglobin is 14.0 g/dL, white count 14,200. Electrolytes within normal range. Creatinine is 1.1 mg/dL, nonfasting blood sugar 235. Troponins were negative. For coronary ischemia, BNP is 1627. Chest x-ray on admission showed cardiomegaly, tortuous aorta, bilateral infiltrates and/or edema. ASSESSMENT: 1. A 70-year-old female with intentional drug overdose of hydrocodone. She is despondent and suicidal. 2. 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 3. Paroxysmal atrial fibrillation. 4. Generalized debilitation. 5. Essential hypertension. 6. Congestive heart failure on chest x-ray. 7. Tylenol toxicity. PLAN: 1. Admit to the Intensive Care Unit. 2. N-acetylcysteine protocol. 3. Serial chemistries. 4. Diuresis. 5. Follow up chest x-ray. 6. Formal inpatient Psychiatry consult. 7. Psychiatric assessment team to also see the patient. FREDERIC NEWELL MD DR: JIE/matty JOB#: [id number] / [id number] ESDRAS Cormier
[2020-07-17 13:57] LABS: CREATININE 1.4 mg/dL (0.6-1.0); GFR 37.2; POTASSIUM 3.6 mmol/L (3.5-5.1)
[2020-07-17 14:12] LABS: ACETAMIN < 2.0 mcg/mL (10-30)
[2020-07-17 14:43] LABS: ALBUMIN 3.2 g/dL (3.4-5.0); DIRECT BILIRUBIN 0.1 mg/dL (0.0-0.2); TOTAL BILIRUBIN 0.2 mg/dL (0.2-1.0); TOTAL PROTEIN 7.6 g/dL (6.4-8.2)
[2020-07-17] MEDS ORDERED: PROCHLORPERAZINE 10 MG/2 ML VIAL. IV PRN (16:15)
[2020-07-17] MEDS ORDERED: FUROSEMIDE 40 MG/4 ML VIAL IVP ONE (16:15)
[2020-07-17] MEDS: cloNIDine TTS-3 1 PATCH PATCH TD SCH (17:08)
--- NOTE | 2020-07-17 22:00 | NUR ---
Pt's BP went down to 100/55 after being up in the 180's systolic during the day. This nurse took the clonidine patch off of patient. Will continue to monitor.
[2020-07-17] MEDS: NYSTATIN TOPICAL POWDER 15GM BOTTLE. TP SCH (22:16)
[2020-07-17 22:24] LABS: ALBUMIN 2.8 g/dL (3.4-5.0); ALBUMIN/GLOBULIN RATIO 0.7 (1.0-1.7); CALCIUM 8.7 mg/dL (8.5-10.1); CREATININE 1.4 mg/dL (0.6-1.0); GFR 37.2; POTASSIUM 3.3 mmol/L (3.5-5.1); TOTAL BILIRUBIN 0.2 mg/dL (0.2-1.0); TOTAL PROTEIN 6.6 g/dL (6.4-8.2)
[2020-07-18] VITALS (23 sets, daily range): BP systolic 97–154; BP diastolic 46–87
--- NOTE | 2020-07-18 04:56 | NUR ---
Pt was up most of the night. Pt still voices SI. Pt states, "I want to but I don't have a plan." Pt's daughter called earlier in the night asking about the pt. When pt was told this pt rolled her eyes and didn't want to hear anymore. Pt does not want to go to the [place] [facility]. Pt was tearful at the beginning of the night. Throughout the night pt seemed to smile a little more. Bed bath was given to patient.
[2020-07-18] MEDS: FUROSEMIDE 80 MG TABLET PO SCH (08:44)
[2020-07-18] MEDS: NYSTATIN TOPICAL POWDER 15GM BOTTLE. TP SCH ×2 (08:45→21:26)
[2020-07-18] MEDS: ATENOLOL 50 MG TABLET PO SCH (08:45)
--- NOTE | 2020-07-18 08:45 | PN ---
DATE: 07/18/2020 ATTENDING PHYSICIAN: Dr. Newell. SUBJECTIVE: Affect is slightly better. She is awake. She has no significant complaints. Her nausea has improved. OBJECTIVE FINDINGS: VITAL SIGNS: Blood pressure had been high. We placed a clonidine patch. It dropped it down to 133 and then 106/46. The patch was since removed. Heart rate fluctuates between 90 and 110, oxygen saturation 94% on 2 liters, temperature 96.1 degrees Fahrenheit. HEENT: Head is without trauma. Pupils are reactive. Sclerae are nonicteric. Oropharynx clear. There is no facial droop. NECK: Supple, no bruits. LUNGS: Good breath sounds, but shallow. CARDIOVASCULAR: Showed regular heart tones. No gallops. ABDOMEN: Soft, obese, protuberant. No organomegaly. Bowel sounds are normoactive. EXTREMITIES: Showed trace edema. NEUROLOGIC: She has right-sided hemiparesis with contractures of the right hand. She tells me she has been ambulatory with minimal assistance at home. SKIN: Warm and dry. ASSESSMENT: 1. A 70-year-old female with intentional drug overdose of hydrocodone and Tylenol. She has been suicidal and despondent of going to a detention. 2. 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 3. Paroxysmal atrial fibrillation. 4. Generalized debilitation. 5. Essential hypertension. 6. Congestive heart failure on chest x-ray, improved. 7. Tylenol toxicity, treated. PLAN: 1. Keep in ICU. 2. Continue diuresis with oral Lasix. 3. Add beta blockade. 4. Serial chemistries. 5. The Psychiatry consultation will followup along with the psychiatric assessment team evaluation. FREDERIC NEWELL MD DR: JIE/matty JOB#: [id number] / [id number]
--- NOTE | 2020-07-18 19:57 | NUR ---
Pt is not voicing SI at this time. Pt is pleasant and cooperative and wants to feed herself ice cream. Pt seems to be in good spirits. Pt has a flat affect at times.
[2020-07-18] MEDS: LACTOBACILLUS RHAMNOSUS GG 1 CAPSULE. PO SCH (21:26)
[2020-07-19] VITALS (16 sets, daily range): BP systolic 110–178; BP diastolic 54–99
[2020-07-19 07:00] LABS: CALCIUM 9.2 mg/dL (8.5-10.1); CREATININE 1.1 mg/dL (0.6-1.0); GFR 49.1; POTASSIUM 3.4 mmol/L (3.5-5.1)
[2020-07-19] MEDS: NYSTATIN TOPICAL POWDER 15GM BOTTLE. TP SCH ×2 (09:00→20:41)
[2020-07-19] MEDS: ATENOLOL 50 MG TABLET PO SCH (09:00)
[2020-07-19] MEDS: LACTOBACILLUS RHAMNOSUS GG 1 CAPSULE. PO SCH ×2 (09:14→20:42)
[2020-07-19] MEDS: FUROSEMIDE 80 MG TABLET PO SCH (09:14)
[2020-07-19] MEDS ORDERED: MAGNESIUM SULFATE 1GM 100 ML IV ONE (10:15)
--- NOTE | 2020-07-19 10:24 | PN ---
DATE: 07/19/2020 ATTENDING PHYSICIAN: Dr. Newell. SUBJECTIVE: The patient is comfortable. She denies any ideation of self-harm. I asked her the specific question. OBJECTIVE FINDINGS: VITAL SIGNS: Blood pressure today is 118/56, pulse 52 and regular, temperature 97.7 degrees Fahrenheit, oxygen saturation 96% on 2 liters nasal cannula. HEENT: Head is without trauma. Pupils are reactive. Sclerae nonicteric. Oropharynx clear. NECK: Supple, no bruits. LUNGS: Good breath sounds. CARDIOVASCULAR: Showed regular heart tones. No gallops. ABDOMEN: Soft, no guarding. EXTREMITIES: Show trace edema. NEUROLOGIC: She has right-sided hemiparesis and contractures of the right hand. She has not been ambulatory. SKIN: Otherwise warm and dry. ASSESSMENT: 1. A 70-year-old female with intentional drug overdose of hydrocodone and Tylenol. She has been suicidal and despondent. She states that she is not suicidal this morning. 2. Tylenol toxicity treated with N-acetylcysteine. 3. 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 4. Paroxysmal atrial fibrillation, in sinus rhythm. 5. Generalized debilitation 6. Essential hypertension. 7. Congestive heart failure, improved on chest x-ray. PLAN: 1. We will keep on telemetry. 2. Continue diuresis with oral Lasix. 3. Add beta blockade. 4. Serial chemistries. 5. Psychiatric consultation and recommendations for placement tomorrow. FREDERIC NEWELL MD DR: JIE/matty JOB#: [id number] / [id number]
[2020-07-19] MEDS: POTASSIUM CHLORIDE 20 MEQ TABLET.ER. PO SCH ×2 (10:49→20:42)
[2020-07-20 05:38] VITALS: BP 123/76
[2020-07-20 06:01] LABS: CALCIUM 9.3 mg/dL (8.5-10.1); GFR 54.8; POTASSIUM 3.4 mmol/L (3.5-5.1)
--- NOTE | 2020-07-20 06:15 | NUR ---
Pt awake in bed at change of shift waiting TV and eating chips. Pt is A&Ox4, pleasant and cooperative with staff and all cares. Pt currently denies SI but did stated that "over my body am I going to [facility]." Pt up most of the night off and on watching TV but did finally fall asleep around 0230. Pt up to BSC with assist a few times during night. Still awaiting acceptance to psych facility per PAT team.
[2020-07-20 08:00] VITALS: BP 173/87
[2020-07-20] MEDS: ATENOLOL 50 MG TABLET PO SCH (09:00)
[2020-07-20] MEDS: NYSTATIN TOPICAL POWDER 15GM BOTTLE. TP SCH (09:00)
[2020-07-20] MEDS: LACTOBACILLUS RHAMNOSUS GG 1 CAPSULE. PO SCH (10:18)
[2020-07-20] MEDS: cloNIDine TTS-3 1 PATCH PATCH TD SCH (10:19)
[2020-07-20] MEDS: FUROSEMIDE 80 MG TABLET PO SCH (10:19)
[2020-07-20] MEDS: POTASSIUM CHLORIDE 20 MEQ TABLET.ER. PO SCH (10:19)
--- NOTE | 2020-07-20 11:15 | NUR ---
Ayan with [facility] Team was in to access patient and cleared the patient for discharge. He stated she was no longer suicidal and has no thoughts of wanting to hurt herself. Patient did state that she didn't want to really but was just overwhelmed with the past events of her life. Patients 11 months ago and her sister who she was planning on living with just a month ago. So she has been depressed due to all of the life changes. Patient is calm, cooperative, a little tearful talking about the past life events but now understands that her daughter needs help in caring for her and that she can't really care for herself at home alone. Patient states it's hard to lose her independence and her in such a short time. Very understandable. Patient stated she is willing to go to [facility] now like her daughter recommended. Patient was also started on an anti depressant to help with the depression. Jackie Merchant CM is now screening the patient for [facility] admission. ENEDINA.
[2020-07-20] MEDS ORDERED: SERTRALINE 50 MG TABLET. PO SCH (11:30)
[2020-07-20 12:00] VITALS: BP 169/61
--- NOTE | 2020-07-20 12:14 | DS ---
DATE OF DISCHARGE: 07/20/2020 ATTENDING PHYSICIAN: Dr. Newell. FINAL DISCHARGE DIAGNOSES: 1. Acute drug overdose of hydrocodone and Tylenol in a suicide attempt. 2. Tylenol toxicity treated with N-acetylcysteine. 3. 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 4. Underlying depression. 5. Paroxysmal atrial fibrillation. 6. Generalized debilitation. 7. Essential hypertension. 8. Mild congestive heart failure, improved on chest x-ray. HISTORY AND PHYSICAL: The patient is a 70-year-old female who has had a significant stroke with resultant right-sided hemiparesis. She has been living with her daughter. She was unable to care for herself. The daughter had made plans for her to be admitted to [facility] prior to coming into the hospital. She became despondent, did not want to go and took approximately 50 hydrocodone, Tylenol tablets in a suicide attempt. In the ED, she was given Narcan, charcoal and Tylenol level was elevated. She was started N-acetylcysteine protocol. PHYSICAL EXAMINATION: Please see the dictated note. PERTINENT LABORATORY AND X-RAY STUDIES: Admission hemoglobin 14.0 g/dL, white count 14,200. Electrolytes were drawn prior to discharge, her sodium was stable at 143, potassium 3.4 mEq. She is on replacement. Creatinine remained improved to 1.0 mg/dL. Sugars were adequate. Toxicology screens, admission Tylenol level is 136. Repeated it was down to 14 the next day and then down to 0. Alcohol level was unremarkable. COURSE IN THE HOSPITAL: The patient was admitted to the ICU and monitor. She had evidence of chest x-ray. We cover her for pneumonia and heart failure. She responded well to diuretics. Followup subsequent films showed an improvement of the pleural effusions and vascular congestion. She was started on N-acetylcysteine protocol for Tylenol overdose. Poison control was helpful and their recommendation. She was seen in consultation by the [facility] psychiatric assessment team as well as our inpatient psychiatrist. Unfortunately, this time, she does not qualify to go to the [facility] because of insurance reasons. On the fourth hospital day, arrangements were then made for her to go to [facility] for continued rehab and convalescent. She is stable from a medical standpoint. Her meds have been simplified. She will continue her aspirin 81 mg daily, ferrous sulfate, fluticasone, lisinopril, multivitamin. We did start her on Zoloft 50 mg p.o. daily. We stopped her hydrocodone obviously. In addition, she should take Lasix and potassium as ordered. The patient was then discharged from our hospital in stable condition with explicit instructions and followup care. She was feeling better and she voiced no suicidal ideation at the time of discharge. TOTAL DISCHARGE TIME SPENT: 39 minutes. FREDERIC NEWELL MD DR: JIE/matty JOB#: [id number] / [id number] ESDRAS Cormier
--- NOTE | 2020-07-20 13:09 | NUR ---
Dr. Berry cancelled the 1:1 order on the patient.
--- NOTE | 2020-07-20 13:10 | NUR ---
Previous RN removed the patients clonidine patch and the atenolol was stopped due to patients low heart rate therefore this RN pulled and applied the clonidine patch due to patients high blood pressure readings. Otherwise the patient has no other form of HTN control. Patient most recent BP reading was 169/91 which is decrease from the previous readings.
--- NOTE | 2020-07-20 13:16 | NUR ---
Patient has been accepted to [facility]. Report was called to RN at [facility]. Discharge packet is ready for facility. Currently waiting for [facility] to call with a cotton picker operator time.
[2020-07-20 16:29] VITALS: BP 166/84
--- NOTE | 2020-07-20 16:50 | NUR ---
Patient left the unit via wheelchair accompanied by MEDICAL ANTHROPOLOGIST. Patient was transported by transportation provided by [facility].
== END 2020-07-20 16:50 | DRG 917 ==
LOC: ER 21:25 → ICU 07-17 00:12
PROVIDERS: ADMIT Hospitalist; ATTEND Hospitalist
DX: T39.1X2A Poisoning by 4-Aminophenol derivatives, intentional self-harm, initial encounter (principal); I50.23 Acute on chronic systolic (congestive) heart failure; I69.351 Hemiplegia and hemiparesis following cerebral infarction affecting right dominant side; T40.2X2A Poisoning by other opioids, intentional self-harm, initial encounter; I11.0 Hypertensive heart disease with heart failure; F32.9 Major depressive disorder, single episode, unspecified; G89.4 Chronic pain syndrome; I25.10 Atherosclerotic heart disease of native coronary artery without angina pectoris; I48.0 Paroxysmal atrial fibrillation; Z66 Do not resuscitate; R53.81 Other malaise; Z79.82 Long term (current) use of aspirin; Z87.442 Personal history of urinary calculi; Z87.891 Personal history of nicotine dependence; Z90.710 Acquired absence of both cervix and uterus; Z90.49 Acquired absence of other specified parts of digestive tract; Z86.718 Personal history of other venous thrombosis and embolism; Y92.89 Other specified places as the place of occurrence of the external cause
CPT/HCPCS: 36415; 71045; 80048; 80053; 80076; 80329; 82803; 83880; 84484; 85025; 85610; 87040; 93005; 94660; 96365; 96367; 96375; 96376; 99285; G0480; J0132; J0696; J0780; J1940; J2310; J2405; J2543; J2765; J3475; J3490; 97110

== ENCOUNTER 2020-10-03 08:34 | Emergency (ER) | payer MEDICARE, OTHER ==
[~2020-10-03] VITALS: Ht 160 cm; Wt 108.8 kg
--- NOTE | 2020-10-03 08:59 | PHYS DOC ---
Past History Past Medical History: A-Fib, CHF, CVA, DVT, Hypertension, Kidney Stones, Stroke Past Surgical History: Cholecystectomy, Hysterectomy, Tonsillectomy Alcohol Use: None General Adult EDM: Chief Complaint: SHORTNESS OF BREATH HPI: HPI: 70-year-old female presents via EMS for shortness of breath. She has COPD at baseline is on 2 L of oxygen at home. She tells me that for the last 2 days her shortness of breath has been getting worse and that her home oxygen has not cut ting it. She has been taking her COPD medications. She had a breathing treatment this morning before EMS and with EMS before she got to the ER. The patient has not been hospitalized "for a while." She has no other complaints at this time. Review of Systems: Review of Systems: Constitutional: Denies fever or chills Eyes: Denies change in visual acuity HENT: Denies nasal congestion or sore throat Respiratory: Shortness of breath Cardiovascular: Denies chest pain or edema GI: Denies abdominal pain, nausea, vomiting, bloody stools or diarrhea : Denies dysuria Musculoskeletal: Denies back pain or joint pain Integument: Denies rash Neurologic: Denies headache, focal weakness or sensory changes Endocrine: Denies polyuria or polydipsia Lymphatic: Denies swollen glands Psychiatric: Denies depression or anxiety Allergies: Allergies: Allergies Coded Allergies Type Severity Reaction Last Updated Verified Sulfa (Sulfonamide Antibiotics) Allergy Unknown 05/12/20 Yes levofloxacin Allergy Unknown 05/12/20 Yes morphine Allergy Unknown 05/12/20 Yes Physical Exam: PE: Constitutional: Well developed, well nourished, obese, no acute distress, non- toxic appearance. [] HENT: Normocephalic, atraumatic, bilateral external ears normal, oropharynx moist, no oral exudates, nose normal. [] Eyes: PERRLA, EOMI, conjunctiva normal, no discharge. [] Neck: Normal range of motion, no tenderness, supple, no stridor. [] Cardiovascular:Heart rate regular rhythm, no murmur [] Lungs & Thorax: Bilateral breath sounds diminished with end expiratory wheezing. Prolonged expiratory phase. [] Abdomen: Bowel sounds normal, soft, no tenderness, no masses, no pulsatile masses. [] Skin: Warm, dry, no erythema, no rash. [] Back: No tenderness, no CVA tenderness. [] Extremities: No tenderness, no cyanosis, no clubbing, ROM intact, no edema. [] Neurologic: Alert and oriented X 3, normal motor function, normal sensory function, no focal deficits noted. [] Psychologic: Affect normal, judgement normal, mood normal. [] EKG: EKG: [] Radiology/Procedures: Radiology/Procedures: [] Impressions: Single view chest dated 10/03/2020. Comparison made to 07/17/2020. CLINICAL INDICATION: Shortness of breath. FINDINGS: Single upright portable exam performed. Heart and mediastinal contours are sta ble. Lungs are hypoinflated but otherwise clear. No consolidation or pleural effusion. No pneumothorax. IMPRESSION: No acute radiographic abnormality. Electronically signed by: Ismael Cruz MD (10/03/2020 9:14 AM) [id number] DICTATED AND SIGNED BY: ISMAEL CRUZ MD DATE: 10/03/20 0913 CC: JUSTIN WILLOUGHBY DO; ESDRAS HUDSON ~MTH0 0 Heart Score: C/O Chest Pain: N/A Risk Factors: Risk Factors: DM, Current or recent (<one month) smoker, HTN, HLP, family history of CAD, obesity. Risk Scores: Score 0 - 3: 2.5% MACE over next 6 weeks - Discharge Home Score 4 - 6: 20.3% MACE over next 6 weeks - Admit for Clinical Observation Score 7 - 10: 72.7% MACE over next 6 weeks - Early Invasive Strategies Course & Med Decision Making: Course & Med Decision Making Pertinent Labs and Imaging studies reviewed. (See chart for details) The patient's EKG is negative for acute findings. She has several lab abnormalities, see labs for more details. For her COPD exacerbation I ordered DuoNeb treatments and Solu-Medrol. Troponin is negative. She is feeling a lot better at this time. She would prefer to go back to the [facility] admission. I believe this is reasonable. She is stable for discharge at this time. [] Florian Disclaimer: Florian Disclaimer: This electronic medical record was generated, in whole or in part, using a voice recognition dictation system. Departure Departure: Impression: Primary Impression: COPD exacerbation Disposition: [facility] Condition: IMPROVED Referrals: ESDRAS HUDSON (PCP) Patient Instructions: Chronic Obstructive Pulmonary Disease Exacerbation, [id number] Scripts Prednisone (PREDNISONE) 50 Mg Tablet 1 TAB PO DAILY for COPD for 3 Days, #3 TAB Prov: JUSTIN WILLOUGHBY DO 10/03/20 JUSTIN WILLOUGHBY DO Oct 03, 2020 08:59
[2020-10-03] MEDS ORDERED: methylPREDNISolone SOD SUCC PF 125 MG/2 ML VIAL. IV ONE (09:00)
[2020-10-03] MEDS ORDERED: IPRATRPIUM/ALBUTEROL 0.5/2.5MG 3 ML NEBU. NEB ONE (09:00)
--- NOTE | 2020-10-03 09:16 | RAD ---
Single view chest dated 10/03/2020. Comparison made to 07/17/2020. CLINICAL INDICATION: Shortness of breath. FINDINGS: Single upright portable exam performed. Heart and mediastinal contours are stable. Lungs are hypoinfl ated but otherwise clear. No consolidation or pleural effusion. No pneumothorax. IMPRESSION: No acute radiographic abnormality. Electronically signed by: Ismael Cruz MD (10/03/2020 9:14 AM) [id number]
[2020-10-03 09:32] LABS: BASO # 0.1 x10^3/uL (0.0-0.2); BASO % 1 % (0-3); EOS # 0.2 x10^3/uL (0.0-0.7); EOS % 2 % (0-3); HEMATOCRIT 32.6 % (36.0-47.0); HEMOGLOBIN 10.4 g/dL (12.0-15.5); LYMPH # 1.2 x10^3/uL (1.0-4.8); LYMPH % 13 % (24-48); MEAN CORPUSCULAR HEMOGLOBIN 27 pg (25-35); MEAN CORPUSCULAR HGB CONC 32 g/dL (31-37); MEAN CORPUSCULAR VOLUME 86 fL (79-100); MONO # 0.7 x10^3/uL (0.0-1.1); MONO % 7 % (0-9); NEUT # 7.2 x10^3uL (1.8-7.7); NEUT % 77 % (31-73); PLATELET COUNT 227 x10^3/uL (140-400); RED CELL DISTRIBUTION WIDTH 15.6 % (11.5-14.5); WHITE BLOOD COUNT 9.3 x10^3/uL (4.0-11.0)
[2020-10-03 09:34] LABS: CREATININE 1.3 mg/dL (0.6-1.0); GFR 40.5; POTASSIUM 5.6 mmol/L (3.5-5.1)
[2020-10-03 09:40] LABS: ALBUMIN 3.4 g/dL (3.4-5.0); ALBUMIN/GLOBULIN RATIO 0.9 (1.0-1.7); TOTAL BILIRUBIN 0.2 mg/dL (0.2-1.0)
--- NOTE | 2020-10-03 09:51 | EKG ---
[address] [address] Test Date: 2020-10-03 Test Time: 08:59:27 Pat Name: SHERRI BERGER Department: Room: Gender: F Appraisal Manager: JACKIE : 1950 Requested By: JUSTIN WILLOUGHBY Order Number: [id number] Reading MD: Measurements Intervals [place] Rate: 80 P: -3 ME: 208 QRS: -23 QRSD: 104 T: 84 QT: 386 QTc: 449 Interpretive Statements SINUS RHYTHM LEFTWARD AXIS LOW LIMB LEAD VOLTAGE QRS(T) CONTOUR ABNORMALITY CONSIDER ANTEROSEPTAL MYOCARDIAL DAMAGE CONSISTENT WITH INFERIOR INFARCT PROBABLY OLD T ABNORMALITY IN HIGH LATERAL LEADS ABNORMAL ECG RI6.02 No previous ECG available for comparison
[2020-10-03] MEDS ORDERED: PRED50TA PO (11:34)
[2020-10-03 11:50] VITALS: BP 135/74
[2020-10-03 12:05] LABS: BILIRUBIN,URINE NEG (NEG); CLARITY,URINE CLEAR; COLOR,URINE YELLOW; GLUCOSE,URINE NEG (NEG); NITRITE,URINE NEG (NEG); UROBILINOGEN,URINE 0.2 mg/dL (0.2 mg/dL)
[2020-10-03 12:07] LABS: BACTERIA,URINE FEW /HPF (0-FEW); RBC,URINE 0 /HPF (0-2); WBC,URINE 0 /HPF (0-4)
== END 2020-10-03 13:10 ==
LOC: ER 08:34
DX: J44.1 Chronic obstructive pulmonary disease with (acute) exacerbation (principal); I11.0 Hypertensive heart disease with heart failure; I50.9 Heart failure, unspecified; Z90.49 Acquired absence of other specified parts of digestive tract; Z88.6 Allergy status to analgesic agent; Z88.2 Allergy status to sulfonamides; Z90.710 Acquired absence of both cervix and uterus; Z87.442 Personal history of urinary calculi
CPT/HCPCS: 36415; 71045; 80053; 81001; 84484; 85025; 93005; 94640; 96374; 99285; J2930

== ENCOUNTER 2020-10-28 09:47 | Inpatient (IN) | payer MEDICARE, OTHER ==
[~2020-10-28] VITALS: Ht 160 cm; Wt 101.1 kg
[~2020-10-28 09:47] MED LIST changes: +PRED50TA PO
--- NOTE | 2020-10-28 10:37 | PHYS DOC ---
Past History Past Medical History: A-Fib, CHF, COPD, CVA, Depression, DVT, GERD, Hypertension, Kidney Stones, Stroke, TIA Additional Past Medical Histor: cardiomyopathy, PVD Past Surgical History: Cholecystectomy, Hysterectomy, Tonsillectomy Smoking: Quit Greater Than 1 Year Alcohol Use: None Drug Use: None General Adult EDM: Chief Complaint: DIARRHEA HPI: HPI: A 70 year old female presents complaining of diarrhea, cough and left knee pain. She reports that her diarrhea and cough have worsened since last week and now she feels SOB. The patient reports that she fell two weeks ago and has been experiencing left knee pain and swelling since. She denies hitting her head or LOC at that time. Patient is a former smoker. Patient denies known exposure to COVID-19. Reports has received both Covid 19 vaccination doses. Review of Systems: Review of Systems: Constitutional: Denies fever or chills Eyes: Denies redness or eye pain HENT: Denies nasal congestion or sore throat Respiratory: Reports cough and shortness of breath Cardiovascular: Denies chest pain or palpitations GI: Denies nausea and vomiting; reports diarrhea : Denies dysuria or hematuria Musculoskeletal: Denies back pain; reports left knee pain/swelling Integument: Reports ecchymosis over left knee Neurologic: Denies headache, focal weakness or sensory changes Complete systems were reviewed and found to be within normal limits, except as documented in this note. Allergies: Allergies: Allergies Coded Allergies Type Severity Reaction Last Updated Verified Sulfa (Sulfonamide Antibiotics) Allergy Unknown 05/12/20 Yes levofloxacin Allergy Unknown 05/12/20 Yes morphine Allergy Unknown 05/12/20 Yes Physical Exam: PE: Constitutional: Obese female in mild distress HENT: Normocephalic, atraumatic Eyes: Conjunctiva normal, no discharge Neck: Normal range of motion, no tenderness, supple Lungs & Thorax: Mild respiratory distress with productive cough, equal chest rise and fall, no distress Abdomen: Soft, no tenderness, no guarding/rebound tenderness, mild distention Skin: Brusing over the left knee, no other rashes or lesions observed Back: No tenderness, no CVA tenderness Extremities: Left knee pain and swelling, ROM limited due to pain Neurologic: Alert and oriented X 3, normal motor function Psychologic: Affect normal, judgment normal EKG: EKG: @1004 sinus tachycardia with a rate of 104 bpm, QRS 102 ms, QT/QTc 346/461 ms, possible left anterior fascicular block, no ST elevation observed Radiology/Procedures: Radiology/Procedures: PROCEDURE: KNEE LEFT 3V EXAM: Left knee, 4 views. HISTORY: Pain. COMPARISON: 11/22/2019 FINDINGS: 4 views of the left knee are obtained. There is severe medial compartment joint space narrowing, subchondral sclerosis and spurring. There is mild lateral and patellofemoral compartment spurring. There is genu varus. There is no significant joint effusion. There is prepatellar soft tissue swelling. There are vascular calcifications. IMPRESSION: 1. Severe medial compartment and mild lateral and patellofemoral compartment osteoarthritis of the left knee with genu varus. 2. Prepatellar soft tissue swelling. Electronically signed by: Deandra Bush MD (10/28/2020 11:23 AM) [id number] PROCEDURE: CT CHEST ABDOMEN PELVIS WO ADDENDUM ADDENDUM #1 Addendum: As noted in the findings section of the report, there is a heter ogeneous thyroid containing multiple nodules and calcifications. This is likely due to a goiter. Thyroid sonography can be performed for characterization if not previously performed at an outside facility. Also described in the findings section of the report, there are bilateral benign adrenal myelolipomas. Electronically signed by: Deandra Bush MD (10/28/2020 1:38 PM) [id number] ORIGINAL REPORT EXAM: Chest, abdomen and pelvis CT without intravenous contrast. HISTORY: Shortness of breath. Cough. TECHNIQUE: Computed tomographic images of the chest, abdomen and pelvis were obtained following the administration administration of intravenous contrast. Multiplanar reformatting was performed. *One or more of the following individualized dose reduction techniques were utilized for this examination: 1. Automated exposure control. 2. Adjustment of the mA and/or kV according to patient size. 3. Use of iterative reconstruction technique. COMPARISON: 07/04/2019. FINDINGS: Chest: The heart is normal in size. The aorta is normal in caliber. There is calcified atherosclerotic plaque involving the aorta, coronary arteries and aortic arch great vessels. There is a heterogeneous enlarged thyroid containing multiple nodules and calcifications. No pathologically enlarged mediastinal or hilar lymph node is seen. There is no pneumothorax or pleural effusion. There is groundglass infiltrate within the bilateral lower lobes. This is superimposed on suspected bilateral posterior dependent and basilar atelec tasis. There are few tiny 1 to 2 mm pulmonary nodules which are likely benign based on size. There is a 3 mm nodule along the right minor fissure which is likely a fissural lymph node. There are degenerative changes involving the thoracic spine. There is no acute or suspicious osseous lesion. Abdomen and pelvis: No suspicious hepatic lesion is seen. The gallbladder is absent. The pancreas, spleen and stomach are unremarkable. There is a fat density nodule within the left adrenal gland measuring 2.9 cm, consistent with an adrenal myelolipoma. There is a similar-appearing myelolipoma involving the right adrenal gland measuring 1.8 cm. There are multiple bilateral renal cysts, some which are solid hyperdense and likely hemorrhagic. Evaluation for solid renal lesions is limited in the absence of contrast. The largest cyst seen on the right measuring 2.8 cm. There is bilateral nephrolithiasis. No obstructing renal stone is seen. There is no hydronephrosis. The bladder is nearly empty. There is a moderate right inguinal hernia containing fat and a segment of small bowel. There is no evidence of mechanical obstruction or bowel incarceration. There is moderate colonic stool. There is distal colonic diverticulosis. There is no diverticulitis. The uterus is absent. There is aortic and aortic branch vessel atherosclerosis. There is diastasis of the ventral abdominal wall musculature. There are degenerative changes involving the spine and both hips. There is no acute or suspicious osseous lesion. IMPRESSION: 1. Groundglass infiltrate within the bilateral lower lobes superimposed on posterior dependent and basilar atelectasis. Correlate for pneu monia/pneumonitis. 2. Multiple bilateral renal cysts, some which may be hemorrhagic and several which may contain milk of calcium. Evaluation for solid lesions is limited in the absence of contrast. Renal sonography may be useful to confirm benignity. 3. Cholelithiasis. 4. Colonic diverticulosis. There is no convincing diverticulitis. 5. Moderate right inguinal hernia containing fat and loops of small bowel. There is no evidence of mechanical obstruction or incarceration. There is also diastasis of the ventral abdominal wall musculature. Electronically signed by: Deandra Bush MD (10/28/2020 12:52 PM) [id number] Heart Score: C/O Chest Pain: N/A Course & Med Decision Making: Course & Med Decision Making Pertinent Labs and Imaging studies reviewed. (See chart for details) Patient presents from snf that was previously on hospice for CHF with report of respiratory distress, cough, diarrhea, and left knee pain status post fall. Patient noted to have significant ecchymosis to left knee. X-ray obtained without acute fracture or dislocation. Significant arthritis noted. Pain addressed. Hans wrap applied for comfort. EKG stable. Labs obtained and posted to chart. BNP greater than 2000. Initial troponin within normal limits. WBC elevated. Patient meeting SIRS criteria with tachycardia, tachypnea, and leukocytosis. CT chest/abdomen/pelvis with findings concerning for atypical pneumonia. Empiric antibiotic initiated. Patient meeting criteria for sepsis. Lactic acid normal. No other signs of endorgan damage. Patient reports has received COVID-19 vaccination x2. Patient requiring admission for further evaluation and treatment. Discussed with Dr. Dill (hospitalist) who is in agreement with admission. Discussed findings and plan with patient, who acknowledges understanding and agreement. Of note patient is aware by admission to hospital she no longer will be enrolled in hospice. Patient acknowledges understanding and agreement. Patient also reports she is a full code. [employer] Disclaimer: [employer] Disclaimer: This electronic medical record was generated, in whole or in part, using a voice recognition dictation system. Splinting Splinting : Location: Left knee Pre-Made Type: HANS bandage Pre-Proc Neuro Vasc Exam: normal Post-Proc Neuro Vasc Exam: normal, unchanged from pre-exam Departure Departure: Impression: Primary Impression: Sepsis Qualified Codes: A41.9 - Sepsis, unspecified organism Additional Impressions: Renal insufficiency Pneumonia Qualified Codes: J18.9 - Pneumonia, unspecified organism Diarrhea Qualified Codes: R19.7 - Diarrhea, unspecified Knee contusion Qualified Codes: S80.02XA - Contusion of left knee, initial encounter Disposition: ADMITTED INPATIENT Admitting Physician: Jody Dill Condition: STABLE Referrals: TERESO ANTOINE (PCP) Critical Care Time Critical care time was 30 minutes which includes time at bedside, spent in discussion of patient's care with specialists and/or family members, with interpretation of laboratory and/or radiological studies and is exclusive of procedures. RACHEL PURDY DO Oct 28, 2020 10:37
[2020-10-28 10:43] LABS: ANION GAP 12 (6-14); BLOOD UREA NITROGEN 68 mg/dL (7-20); BUN/CREATININE RATIO 49 (6-20); CALCIUM 9.6 mg/dL (8.5-10.1); CARBON DIOXIDE 23 mmol/L (21-32); CHLORIDE 104 mmol/L (98-107); CREATININE 1.4 mg/dL (0.6-1.0); GFR 37.2; GLUCOSE 118 mg/dL (70-99); POTASSIUM 5.7 mmol/L (3.5-5.1); SODIUM 139 mmol/L (136-145)
[2020-10-28 10:45] LABS: BASO % 0 % (0-3); EOS # 0.2 x10^3/uL (0.0-0.7); EOS % 1 % (0-3); HEMATOCRIT 29.5 % (36.0-47.0); HEMOGLOBIN 9.1 g/dL (12.0-15.5); LYMPH # 0.7 x10^3/uL (1.0-4.8); LYMPH % 4 % (24-48); MEAN CORPUSCULAR HEMOGLOBIN 26 pg (25-35); MEAN CORPUSCULAR HGB CONC 31 g/dL (31-37); MEAN CORPUSCULAR VOLUME 84 fL (79-100); MONO # 1.2 x10^3/uL (0.0-1.1); MONO % 6 % (0-9); NEUT # 17.8 x10^3uL (1.8-7.7); NEUT % 89 % (31-73); PLATELET COUNT 503 x10^3/uL (140-400); RED CELL DISTRIBUTION WIDTH 16.5 % (11.5-14.5); WHITE BLOOD COUNT 19.9 x10^3/uL (4.0-11.0)
[2020-10-28 11:00] LABS: ALBUMIN 2.9 g/dL (3.4-5.0); ALBUMIN/GLOBULIN RATIO 0.6 (1.0-1.7); ALK PHOS 113 U/L (46-116); ALT (SGPT) 10 U/L (14-59); AST (SGOT) 12 U/L (15-37); LIPASE 48 U/L (73-393); MAGNESIUM 2.5 mg/dL (1.8-2.4); TOTAL BILIRUBIN 0.3 mg/dL (0.2-1.0); TOTAL PROTEIN 7.6 g/dL (6.4-8.2)
[2020-10-28] MEDS ORDERED: ONDANSETRON PF 4 MG/2 ML VIAL. IVP ONE (11:00)
[2020-10-28 11:14] LABS: % ATYL 1 % (0-0); % BANDS 3 % (0-9); % EOS 1 % (0-5); % LYMPHS 5 % (24-48); % MONOS 2 % (0-10); % SEGS 88 % (35-66); PLT ESTIMATE ADEQUATE (ADEQUATE)
--- NOTE | 2020-10-28 11:26 | RAD ---
EXAM: Left knee, 4 views. HISTORY: Pain. COMPARISON: 11/22/2019 FINDINGS: 4 views of the left knee are obtained. There is severe medial compartment joint space narro wing, subchondral sclerosis and spurring. There is mild lateral and patellofemoral compartment spurri ng. There is genu varus. There is no significant joint effusion. There is prepatellar soft tissue swe lling. There are vascular calcifications. IMPRESSION: 1. Severe medial compartment and mild lateral and patellofemoral compartment osteoarthritis of the le ft knee with genu varus. 2. Prepatellar soft tissue swelling. Electronically signed by: Deandra Bush MD (10/28/2020 11:23 AM) [id number]
[2020-10-28 12:49] LABS: BILIRUBIN,URINE NEG (NEG); CLARITY,URINE CLEAR; COLOR,URINE YELLOW; GLUCOSE,URINE NEG (NEG); NITRITE,URINE NEG (NEG); UROBILINOGEN,URINE 0.2 mg/dL (0.2 mg/dL)
[2020-10-28 12:52] LABS: BACTERIA,URINE FEW /HPF (0-FEW); SQUAMOUS EPITHELIAL CELL,UR FEW /LPF
[2020-10-28 12:53] LABS: GRANULAR CASTS,URINE OCC /HPF; HYALINE CASTS, URINE FEW /HPF
--- NOTE | 2020-10-28 12:55 | RAD ---
EXAM: Chest, abdomen and pelvis CT without intravenous contrast. HISTORY: Shortness of breath. Cough. TECHNIQUE: Computed tomographic images of the chest, abdomen and pelvis were obtained following the a dministration administration of intravenous contrast. Multiplanar reformatting was performed. *One or more of the following individualized dose reduction techniques were utilized for this examina tion: 1. Automated exposure control. 2. Adjustment of the mA and/or kV according to patient size. 3. Use of iterative reconstruction technique. COMPARISON: 07/04/2019. FINDINGS: Chest: The heart is normal in size. The aorta is normal in caliber. There is calcified athe rosclerotic plaque involving the aorta, coronary arteries and aortic arch great vessels. There is a h eterogeneous enlarged thyroid containing multiple nodules and calcifications. No pathologically enlar ged mediastinal or hilar lymph node is seen. There is no pneumothorax or pleural effusion. There is g roundglass infiltrate within the bilateral lower lobes. This is superimposed on suspected bilateral p osterior dependent and basilar atelectasis. There are few tiny 1 to 2 mm pulmonary nodules which are likely benign based on size. There is a 3 mm nodule along the right minor fissure which is likely a f issural lymph node. There are degenerative changes involving the thoracic spine. There is no acute or suspicious osseous lesion. Abdomen and pelvis: No suspicious hepatic lesion is seen. The gallbladder is absent. The pancreas, sp philippe and stomach are unremarkable. There is a fat density nodule within the left adrenal gland measur ing 2.9 cm, consistent with an adrenal myelolipoma. There is a similar-appearing myelolipoma involvin g the right adrenal gland measuring 1.8 cm. There are multiple bilateral renal cysts, some which are solid hyperdense and likely hemorrhagic. Evaluation for solid renal lesions is limited in the absence of contrast. The largest cyst seen on the right measuring 2.8 cm. There is bilateral nephrolithiasis . No obstructing renal stone is seen. There is no hydronephrosis. The bladder is nearly empty. There is a moderate right inguinal hernia containing fat and a segment of small bowel. There is no ev idence of mechanical obstruction or bowel incarceration. There is moderate colonic stool. There is di stal colonic diverticulosis. There is no diverticulitis. The uterus is absent. There is aortic and ao rtic branch vessel atherosclerosis. There is diastasis of the ventral abdominal wall musculature. The re are degenerative changes involving the spine and both hips. There is no acute or suspicious osseou s lesion. IMPRESSION: 1. Groundglass infiltrate within the bilateral lower lobes superimposed on posterior dependent and ba silar atelectasis. Correlate for pneumonia/pneumonitis. 2. Multiple bilateral renal cysts, some which may be hemorrhagic and several which may contain milk o f calcium. Evaluation for solid lesions is limited in the absence of contrast. Renal sonography may b e useful to confirm benignity. 3. Cholelithiasis. 4. Colonic diverticulosis. There is no convincing diverticulitis. 5. Moderate right inguinal hernia containing fat and loops of small bowel. There is no evidence of me chanical obstruction or incarceration. There is also diastasis of the ventral abdominal wall musculat ure. Electronically signed by: Deandra Bush MD (10/28/2020 12:52 PM) [id number]
[2020-10-28] MEDS ORDERED: VANCOMYCIN PER PHARMACY MC PRN ×2 (13:00→17:45)
[2020-10-28] MEDS ORDERED: PIPERACILLIN/TAZOBACTAM 4.5 GM in IV NORMAL SALINE 50ML 50 ML IV ONE (13:00)
[2020-10-28] MEDS ORDERED: VANCOMYCIN 2 GM in IV NORMAL SALINE 500ML 500 ML IV ONE (13:30)
[2020-10-28] MEDS ORDERED: IV NORMAL SALINE 50ML 50 ML ONE (13:34)
[2020-10-28] MEDS ORDERED: PIPERACILLIN/TAZOBACTAM 4.5 GM VIAL IV ONE (13:34)
[2020-10-28] MEDS ORDERED: HYDROcodone/APAP 5/325MG 1 TAB TABLET PO ONE (13:45)
[2020-10-28] MEDS: ONDANSETRON PF 4 MG/2 ML VIAL. IVP PRN (14:09)
[2020-10-28 17:00] VITALS: BP 142/71
[2020-10-28] MEDS ORDERED: IV NORMAL SALINE 1,000ML 1,000 ML IV SCH (17:45)
--- NOTE | 2020-10-28 18:01 | NUR ---
Admission Note Patient arrived from ED via EMS. Patient admitted to per stated leg pain, [facility]. Patient assessment done although patient is a poor historian. Patient arrived with no form of paperwork/packet. This documentation writer reached out to [facility] at 1700 and again at 1733 and spoke to Madeleine for patient paperwork which include pt history, medications, and DPOA paperwork. Fax number given to Madeleine ([phone]). This nurse still has not received paperwork.
[2020-10-28] MEDS ORDERED: PIPERACILLIN/TAZOBACTAM 2.25 GM in IV NORMAL SALINE 50ML 50 ML IV SCH (18:30)
--- NOTE | 2020-10-28 18:52 | EKG ---
[address] [address] Test Date: 2020-10-28 Test Time: 10:04:14 Pat Name: SHERRI BERGER Department: Room: [facility] A Gender: F Manufacturing Engineer Chief: : 1950 Requested By: RACHEL PURDY Order Number: [id number] Reading MD: Massimo Vogt MD Measurements Intervals [place] Rate: 104 P: 52 FL: 206 QRS: -51 QRSD: 102 T: 77 QT: 346 QTc: 461 Interpretive Statements SINUS TACHYCARDIA IVCD LAFB Electronically Signed On 10-29-2020 12:56:00 CDT by Massimo Vogt MD
--- NOTE | 2020-10-28 19:05 | NUR ---
Pharmacy Vancomycin Dosing Note S:Consulted to monitor and dose vancomycin started 10/28/20. O:SHERRI BERGER is a 70 year old F with Sepsis Pneumonia, . Height: 5 feet, 3 inches Weight: 101.1 kg [place] Body Weight: 52.40 Adjusted Body Weight: 71.88 Dosing Weight: Actual Other Antibiotics: ZOSYN 2.25GM IV Q6HR LABS: Last BUN: 68 Last Creatinine: 1.4 Creatinine Clearance: 42.43 Last WBC: 19.9 Vancomycin Dosing: Loading Dose: 2000 mg x1 Dosing Weight: Actual Target Trough: 15-20 A: Based on: Actual weight, renal function, and indication P: 1. Begin Vancomycin 1500 mg IV q24h 2. Follow up Trough level on 10/30/20 at 1330 3. Pharmacy will continue to monitor, follow and adjust therapy as needed. SUE BURTON, 10/28/20 [id number]
--- NOTE | 2020-10-28 19:15 | HP ---
ADMIT DATE: 10/28/2020 HISTORY OF PRESENT ILLNESS: The patient is a 70-year-old female patient, a resident at [facility] who was brought to the Emergency Room with a complaint of diarrhea, cough and left knee pain. She reports that her diarrhea and cough have worsened since last week and now she feels short of breath. The patient reports that she fell 2 weeks ago, has been experiencing left knee pain and swelling since. She denies hitting her head or loss of consciousness at that time. She is a former smoker. She denied any known exposure to COVID. She has received both COVID-19 vaccinations doses. She was extensively investigated in the Emergency Room with lab work and imaging studies as well as an EKG. Her EKG showed that she was in sinus tachycardia with a heart rate of 104 beats per minute with QRS duration of 102 milliseconds, corrected QT interval of 461 milliseconds with possible left anterior fascicular block, but no ST elevation observed. She did have 4 views of the knee that showed severe medial compartment and mild lateral and patellofemoral compartment osteoarthritis of the left knee with genu varus and prepatellar soft tissue swelling. A CT scan of the chest, abdomen and pelvis showed the patient has ground glass infiltrate within the bilateral lower lobes, superimposed and posterior dependent basilar atelectasis, correlate with pneumonia or pneumonitis. She has multiple bilateral renal cysts, some of which may be hemorrhagic and several of which may contain milk or calcium. Evaluation of solid lesion is limited in the absence of contrast. Renal sonography may be useful to confirm benignity. She has cholelithiasis, colonic diverticulosis. There is no convincing diverticulitis. She has moderate right inguinal hernia containing fat and loops of small bowel. There is no evidence of mechanical obstruction or incarceration. There is also diastasis of ventral abdominal wall musculature. The patient was apparently on hospice for congestive heart failure with reports of respiratory distress, cough, diarrhea and left knee pain status post fall. She has significant ecchymosis over the left knee. X-ray obtained without acute fracture or dislocation, significant arthritis, noted pain at rest. Hans wraps applied for comfort. The patient was admitted with sepsis, unspecified, probably pneumonia, renal insufficiency, diarrhea and knee contusion. The patient was treated with IV fluid, pain medication, started also on vancomycin and Zosyn for healthcare-associated pneumonia. PAST MEDICAL HISTORY: Significant for cerebrovascular accident. She has a stroke 7 years ago and another 2 strokes about 2 years ago. She has visual impairment, most likely some visual field deficit. Also, nephrolithiasis, atrial fibrillation, congestive heart failure, history of DVT and hypertension. PAST SURGICAL HISTORY: Significant for cholecystectomy, hysterectomy, tonsillectomy, cystoscopy and retrograde pyelography for stone retrieval. ALLERGIES: SHE IS ALLERGIC TO SULFA DRUGS, LEVOFLOXACIN AND MORPHINE. MEDICATIONS: She is currently on the following medication: Ferrous sulfate 325 mg once a day, lisinopril 10 mg once a day, aspirin 81 mg once a day, Flovent 44 mcg 2 puffs twice a day, prednisone 50 mg daily, and multivitamin 1 tablet once a day. FAMILY HISTORY: She has 5 sisters and 2 brothers that are all biological, although she said she is adopted and she does not know her biological parents. SOCIAL HISTORY: She is , has a son and a daughter. She currently lives at [facility]. She quit smoking about 7 years ago. She does not drink alcohol or do recreational drugs. PHYSICAL EXAMINATION: GENERAL: On arrival to the Emergency Room, the patient looked well and was clearly in no apparent respiratory distress, somewhat pale, but no jaundice, cyanosis or thyromegaly. No jugular venous distention. No limb edema. VITAL SIGNS: Her heart rate was 109, blood pressure was 148/64, temperature was 98.2, respiratory rate 24, and oxygen saturation was 100% on 2 liters of oxygen. HEAD, EYES, EARS, NOSE AND THROAT: Normocephalic, atraumatic. NECK: Supple. HEART: Showed normal first and second heart sounds, no gallop, rub or murmur. CHEST: Clear to auscultation, no crepitation or rhonchi. ABDOMEN: Distended, soft, nontender. NEUROLOGIC: She is awake, alert, responding appropriately. Cranial nerves intact. She has fixed flexion contraction of her right upper extremity. She has marked bruising and swelling over the left knee joint and limited mobility. CT scan of the chest, abdomen and pelvis showed the patient has ground glass infiltrate within the bilateral lower lobe, superimposed and posterior dependent basilar atelectasis, correlate for pneumonia. She has multiple bilateral renal cysts, some of which may be hemorrhagic, has cholelithiasis, colonic diverticulosis. There is no convincing diverticulitis. She has moderate right inguinal hernia containing fat and loops of small bowel. There is no evidence of mechanical obstruction or incarceration. LABORATORY DATA: Her lab work showed a white cell count of 19,900, hemoglobin 9, hematocrit 29, MCV 84 and platelet count 503,000 with a manual differential showed 89% polymorphs, 4% lymphocytes and 6% monocytes. Her serum sodium 139, potassium 5.7, chloride 104, bicarbonate 23, anion gap of 12, BUN 68, creatinine 1.4. Estimated GFR was 37 mL per minute. Her glucose 118, lactic acid was only 0.9. Her calcium was 9.6, magnesium was 2.5. Total bilirubin, AST, ALT, alkaline phosphatase were normal. Beta natriuretic peptide was 2125. Total protein was 7.6, albumin 2.9 and lipase of 48. Urinalysis was essentially unremarkable. ASSESSMENT: This is a 70-year-old female patient who was admitted with sepsis, likely due to pneumonia, hyperkalemia, acute on chronic kidney injury and fall with knee contusion and severe osteoarthritis. Other medical problems include history of hypertension; cerebrovascular accident; visual impairment, likely due to visual field deficit; history of nephrolithiasis; atrial fibrillation; congestive heart failure; history of deep vein thrombosis. My plan is to continue with IV fluid, IV antibiotic. She has had blood and urine sent for culture and sensitivity, the result of which obviously still pending at the time of this dictation. CHUY/ERICA/ANAYA DR: Christiane TID: [id number]
[2020-10-28] MEDS ORDERED: BUDESONIDE 0.5 MG/2 ML NEBU NEB SCH (20:00)
[2020-10-28] MEDS ORDERED: AMOXICILLIN/K CLAV 500/125MG TABLET. PO SCH (21:00)
[2020-10-28] MEDS ORDERED: NON FORMULARY ITEM (Fluticasone Propionate (Flovent 44MCG Hfa) 2 PUFF) IH SCH (21:00)
[2020-10-28] MEDS ORDERED: LINEZOLID 600 MG TABLET PO SCH (21:00)
[2020-10-28] MEDS: LACTOBACILLUS RHAMNOSUS GG 1 CAPSULE. PO SCH (21:11)
[2020-10-29 05:55] VITALS: BP 162/94
[2020-10-29 06:55] LABS: HEMATOCRIT 27.2 % (36.0-47.0); HEMOGLOBIN 8.7 g/dL (12.0-15.5); RED BLOOD COUNT 3.24 x10^6/uL (3.50-5.40); RED CELL DISTRIBUTION WIDTH 16.2 % (11.5-14.5); WHITE BLOOD COUNT 21.2 x10^3/uL (4.0-11.0)
[2020-10-29 07:01] LABS: ALBUMIN 2.6 g/dL (3.4-5.0); ALBUMIN/GLOBULIN RATIO 0.6 (1.0-1.7); CALCIUM 9.4 mg/dL (8.5-10.1); CREATININE 1.2 mg/dL (0.6-1.0); GFR 44.4; POTASSIUM 4.9 mmol/L (3.5-5.1); TOTAL BILIRUBIN 0.3 mg/dL (0.2-1.0)
--- NOTE | 2020-10-29 07:05 | NUR ---
NURSING NOTE SPOKE WITH DR KAUR THIS AM, THIS NURSE WAS ABLE TO OBTAIN IV ACCESS, DR KAUR NOTIFIED AND SWITCHED PT ORAL ANTIBIOTICS TO IV ANTIBIOTICS, WELL IV HYDRATION. CONSULT FOR CARDIOLOGY FOR 12 BEAT RUN OF VTACH OVER NIGHT. PT IS SITTING UP IN BED AT THIS TIME, PT HAVING DIFFICULTY CLEARING SECRETIONS, THIS NURSE SUCTION PT AT BEDSIDE. PT OXGYEN REMAINS AT 96% ON 2L. WILL CONTINUE TO MONITOR. JUANI WAYNE.
--- NOTE | 2020-10-29 07:11 | NUR ---
NURSING NOTE CONSULT CONSULT CARDIOLOGY CALLED AT 0712. JUANI WAYNE.
[2020-10-29] MEDS ORDERED: PIP/TAZO PER PHARMACY MC PRN (07:15)
[2020-10-29] MEDS ORDERED: VANCOMYCIN PER PHARMACY MC PRN (07:15)
[2020-10-29] MEDS ORDERED: IV NORMAL SALINE 1,000ML 1,000 ML IV SCH (07:15)
[2020-10-29] MEDS: ONDANSETRON PF 4 MG/2 ML VIAL. IVP PRN ×2 (07:17→11:26)
[2020-10-29] MEDS: LACTOBACILLUS RHAMNOSUS GG 1 CAPSULE. PO SCH (07:35)
[2020-10-29] MEDS ORDERED: MULTIVITAMIN with MINERAL TABLET. PO SCH (09:00)
[2020-10-29] MEDS ORDERED: FERROUS SULFATE 325 MG TABLET. PO SCH (09:00)
[2020-10-29] MEDS ORDERED: ASPIRIN CHEWABLE 81 MG TABLET. PO SCH (09:00)
[2020-10-29 11:00] VITALS: BP 135/75
--- NOTE | 2020-10-29 11:49 | NUR ---
NURSING NOTE PT FAMILY AT BEDSIDE SPOKE WITH CASE MANAGEMENT ABOUT PLAN OF CARE. PLAN IS FOR PT TO RETURN TO HOSPICE CARE PER PATIENT AND FAMILY REQUEST. CASE MANAGEMENT INVOLVED WITH PLANNING. JUANI WAYNE.
[2020-10-29 13:35] VITALS: BP 129/83
[2020-10-29] MEDS ORDERED: VANCOMYCIN 1.5 GM in IV NORMAL SALINE 500ML 500 ML IV SCH (14:00)
[2020-10-29] MEDS ORDERED: PIPERACILLIN/TAZOBACTAM 4.5 GM in IV NORMAL SALINE 50ML 50 ML IV SCH (14:00)
--- NOTE | 2020-10-29 18:15 | NUR ---
NURSING NOTE DISCHARGE PT DISCHARGED TO [facility] INPATIENT, CÉSAR GLORIA FROM [facility] AT BEDSIDE. ORDERS OBTAINED FROM DR KAUR. FAMILY AT BEDSIDE. JUANI WAYNE.
--- NOTE | 2020-10-30 20:22 | DS ---
DATE OF DISCHARGE: 10/29/2020 HOSPITAL COURSE: The patient is a 70-year-old female patient, who [place] [facility] [place] brought to the Emergency Room with a complaint of diarrhea, cough and left knee pain. She reports that her diarrhea and cough have worsened since last week. She was extensively investigated in the emergency room, was found to be septic with healthcare-associated pneumonia, also left knee contusion and started on IV antibiotic. The patient expressed her desire to go on hospice and she was evaluated by the hospice agency and was discharged to inpatient hospice care. PHYSICAL EXAMINATION: GENERAL: On discharge, she looked well and was clearly in no apparent respiratory distress. She was pale. No jaundice, cyanosis or thyromegaly. No jugular venous distention. No lower limb edema. VITAL SIGNS: Her heart rate was 98, blood pressure is 129/83, temperature was 98, respiratory rate 20, and oxygen saturation was 95% on 2 liters of oxygen. HEAD, EYES, EARS, NOSE, AND THROAT: Normocephalic, atraumatic. NECK: Supple. HEART: Showed normal first and second heart sounds. No gallop, rub or murmur. CHEST: Clear to auscultation. No crepitation or rhonchi. ABDOMEN: Distended, soft, nontender. EXTREMITIES: She moves her upper extremities to much good extent than lower extremities. She has contusion of the left knee joint. NEUROLOGIC: She was awake, alert, responding appropriately. Cranial nerves intact. DISPOSITION: She was discharged to inpatient hospice care. MEDICATIONS: As she is ALLERGIC TO MORPHINE, she was started on a fentanyl infusion at 50 mcg per hour and also Ativan 2 mg per hour. FINAL DISCHARGE DIAGNOSES: 1. Sepsis due to healthcare-associated pneumonia. 2. Other medical problems include hyperkalemia, acute on chronic kidney injury, dementia, hypertension, cerebrovascular accident. JONAS DR: Christiane TID: [id number]
== END 2020-10-29 18:16 | disposition hospice, inpatient (51) | DRG 871 ==
LOC: ER 09:47 → 1 SOUTH 14:09
PROVIDERS: ADMIT Internal Medicine; ATTEND Internal Medicine
DX: A41.89 Other specified sepsis (principal); J18.9 Pneumonia, unspecified organism; I13.0 Hypertensive heart and chronic kidney disease with heart failure and stage 1 through stage 4 chronic kidney disease, or unspecified chronic kidney disease; I42.9 Cardiomyopathy, unspecified; J44.0 Chronic obstructive pulmonary disease with (acute) lower respiratory infection; J98.11 Atelectasis; N17.9 Acute kidney failure, unspecified; E87.5 Hyperkalemia; F03.90 Unspecified dementia, unspecified severity, without behavioral disturbance, psychotic disturbance, mood disturbance, and anxiety; H54.7 Unspecified visual loss; I48.91 Unspecified atrial fibrillation; I50.9 Heart failure, unspecified; I73.9 Peripheral vascular disease, unspecified; K57.30 Diverticulosis of large intestine without perforation or abscess without bleeding; K80.20 Calculus of gallbladder without cholecystitis without obstruction; M17.12 Unilateral primary osteoarthritis, left knee; M21.169 Varus deformity, not elsewhere classified, unspecified knee; N18.9 Chronic kidney disease, unspecified; N28.1 Cyst of kidney, acquired; S80.02XA Contusion of left knee, initial encounter; Y95 Nosocomial condition; Z86.718 Personal history of other venous thrombosis and embolism; Z86.73 Personal history of transient ischemic attack (TIA), and cerebral infarction without residual deficits; Z87.442 Personal history of urinary calculi; Z87.891 Personal history of nicotine dependence; Z90.710 Acquired absence of both cervix and uterus; F32.9 Major depressive disorder, single episode, unspecified; K21.9 Gastro-esophageal reflux disease without esophagitis; Z88.2 Allergy status to sulfonamides; Z88.8 Allergy status to other drugs, medicaments and biological substances; Z79.899 Other long term (current) drug therapy; Z79.01 Long term (current) use of anticoagulants; Z90.49 Acquired absence of other specified parts of digestive tract; W18.39XA Other fall on same level, initial encounter; Y93.89 Activity, other specified; Y92.89 Other specified places as the place of occurrence of the external cause; Y99.8 Other external cause status
CPT/HCPCS: 36415; 71250; 73562; 74176; 80053; 81001; 82553; 83605; 83690; 83735; 83880; 84484; 85007; 85025; 85027; 87040; 93005; 94640; 96365; 96366; 96367; 96375; 96376; J2405; J2543; J3010; J3370; J7040; 99291-25; J7030

== ENCOUNTER 2020-10-29 13:00 | Inpatient (IN) | payer OTHER ==
[~2020-10-29] VITALS: Ht 160 cm; Wt 101.1 kg
[2020-10-29 19:07] VITALS: BP 138/81
[2020-10-29] MEDS: SCOPOLAMINE 1.5MG PATCH. TD SCH (19:23)
[2020-10-30 07:30] VITALS: BP 166/88
[2020-10-30] MEDS ORDERED: ONDANSETRON PF 4 MG/2 ML VIAL. IVP PRN (07:45)
[2020-10-30] MEDS ORDERED: ACETAMINOPHEN 650 MG SUPP.RECT. PR PRN (07:45)
[2020-10-30] MEDS ORDERED: LISINOPRIL 10 MG TABLET PO SCH (09:00)
[2020-10-30] MEDS ORDERED: ASPIRIN CHEWABLE 81 MG TABLET. PO SCH (09:00)
--- NOTE | 2020-10-30 15:36 | HP ---
ADMIT DATE: 10/29/2020 HISTORY OF PRESENT ILLNESS: The patient is a 70-year-old female patient who was admitted with sepsis due to healthcare-associated pneumonia. She has multiple other medical problems including cerebrovascular accident, multiple strokes, visual impairment, likely has some visual field deficit, nephrolithiasis, atrial fibrillation, congestive heart failure, history of DVT and hypertension. The patient opted for hospice and comfort care and was admitted to inpatient hospice. When I saw her this morning, she was resting slightly propped up in bed, in no apparent respiratory distress. On questioning her, denied any complaint. Nursing staff did not voice any concern, stated that the patient has been comfortable. PHYSICAL EXAMINATION: GENERAL: When I examined her, she looked pale, but no jaundice, no cyanosis, no lymphadenopathy, no thyromegaly, no jugular venous distention, no lower limb edema. VITAL SIGNS: Her heart rate was 95, blood pressure was 140/70, temperature was 95.4, respiratory rate was 18 and oxygen saturation was 95% on 2 liters of oxygen. HEAD, EYES, EARS, NOSE, AND THROAT: Normocephalic, atraumatic. NECK: Supple. HEART: Showed normal first and second heart sounds, no gallop or murmur. CHEST: Clear to auscultation. No crepitation or rhonchi anteriorly. ABDOMEN: Distended, soft, nontender. NEUROLOGIC: She is sleepy, but arousable. All cranial nerves intact. She moves upper extremities without difficulty. She has contusion of the left knee joint. ASSESSMENT AND PLAN: The patient was continued on fentanyl drip continuously. She is also on lorazepam 2 mg every 2 hours, scopolamine patch 1 patch every 3 days together with Zofran 4 mg IV every 6 hours and Tylenol 650 mg p.o. rectally every 4 hours as needed. FINAL DISCHARGE DIAGNOSES: Sepsis due to healthcare-associated pneumonia, multiple cerebrovascular accidents, congestive heart failure, atrial fibrillation, hypertension and deep vein thrombosis. DAMEON DR: Christiane TID: [id number]
[2020-10-31] MEDS: fentaNYL HIGH DOSE PCA 55 ML IV PRN (12:53)
[2020-10-31] MEDS: ACETAMINOPHEN 650 MG SUPP.RECT. PR PRN ×2 (13:21→17:17)
[2020-10-31] MEDS: ATROPINE 1% OPHTH SOLUTION 5ML BOTTLE. SL PRN ×2 (16:19→22:04)
[2020-10-31] MEDS ORDERED: ATROPINE 1% OPHTH SOLUTION 5ML BOTTLE. SL SCH (17:00)
[2020-10-31 19:30] VITALS: BP 104/61
--- NOTE | 2020-11-01 01:59 | PN ---
DATE: 10/31/2020 SUBJECTIVE: The patient is resting slightly propped up, clearly tachypneic and ____. OBJECTIVE: VITAL SIGNS: Her heart rate was 95, blood pressure 166/88, temperature was 95.4, respiratory rate was 25 and oxygen saturation was 95% on 2 liters of oxygen. HEAD, EYES, EARS, NOSE AND THROAT: Normocephalic, atraumatic. NECK: Supple. HEART: Showed normal first and second heart sounds, no gallop, rub or murmur. CHEST: Clear to auscultation, no crepitation or rhonchi. ABDOMEN: Distended, soft, nontender. NEUROLOGIC: She is very encephalopathic. ASSESSMENT: 1. Sepsis due to healthcare-associated pneumonia. 2. Acute hypoxic respiratory failure. 3. Multiple cerebrovascular accidents. 4. Congestive heart failure. 5. Atrial fibrillation. 6. Hypertension. 7. Deep vein thrombosis. PLAN: To increase his fentanyl drip to 150 mcg per hour and lorazepam 2 mg every hour together with scopolamine. BRITTANY/CINTIA DR: Christiane TID: [id number]
[2020-11-01] MEDS: fentaNYL HIGH DOSE PCA 55 ML IV PRN ×2 (04:40→07:51)
[2020-11-01] MEDS: ACETAMINOPHEN 650 MG SUPP.RECT. PR PRN ×2 (05:58→10:20)
[2020-11-01] MEDS: ATROPINE 1% OPHTH SOLUTION 5ML BOTTLE. SL PRN (06:19)
[2020-11-01] MEDS: SCOPOLAMINE 1.5MG PATCH. TD SCH (07:50)
[2020-11-01] MEDS ORDERED: HYDROmorphone 12mg/30ml PCA 30 ML IV PRN (10:30)
--- NOTE | 2020-11-01 20:57 | PN ---
DATE: 11/01/2020 SUBJECTIVE: The patient is resting, slightly propped up comfortably in bed, in no apparent distress. She was moaning and groaning this morning. She is now with 200 mcg per hour of fentanyl. However, apparently there is a problem with supply and plan is to switch her to hydrocodone. OBJECTIVE: GENERAL: When I examined her this morning, she looked well and was clearly in no apparent respiratory distress, pale. No jaundice, cyanosis or thyromegaly. No jugular venous distention. No limb edema. VITAL SIGNS: Her heart rate was 95, blood pressure was 104/61, temperature was 100.3, respiratory rate was 24 and oxygen saturation was 95% on 2 liters of oxygen. The rest of clinical exam is stable. ASSESSMENT: 1. Sepsis due to healthcare-associated pneumonia. 2. Acute hypoxic respiratory failure. 3. Multiple cerebrovascular accidents. 4. Congestive heart failure. 5. Atrial fibrillation. 6. Hypertension. 7. Deep vein thrombosis. PLAN: To continue with Ativan. Continue with scopolamine. Apparently, the pharmacy will change to hydromorphone. SUJEY DR: Christiane TID: [id number]
== END 2020-11-01 22:30 | DRG 871 ==
LOC: 1 SOUTH 13:00
PROVIDERS: ADMIT Internal Medicine; ATTEND Internal Medicine
DX: A41.9 Sepsis, unspecified organism (principal); J96.01 Acute respiratory failure with hypoxia; J18.9 Pneumonia, unspecified organism; I11.0 Hypertensive heart disease with heart failure; I50.9 Heart failure, unspecified; I48.91 Unspecified atrial fibrillation; H53.40 Unspecified visual field defects; H54.7 Unspecified visual loss; Z86.73 Personal history of transient ischemic attack (TIA), and cerebral infarction without residual deficits; Z86.718 Personal history of other venous thrombosis and embolism; Z51.5 Encounter for palliative care; Y95 Nosocomial condition
CPT/HCPCS: J1170; J2060; J3010; Q5005